=== PATIENT | female | born 1975 | race Caucasian/White ===

== ENCOUNTER 2016-11-08 03:38 | Observation (INO) | payer OTHER ==
[2016-11-08] MEDS ORDERED: LORazepam 2 MG/ML SYRINGE IV STA (03:57)
[2016-11-08] MEDS ORDERED: SODIUM CHLORIDE 0.9% 500 ML IV STA (03:57)
[2016-11-08] MEDS ORDERED: SODIUM CHLORIDE 0.9% 1,000 ML IV STA (03:57)
[2016-11-08] MEDS ORDERED: MORPHINE SULFATE 4 MG/ML SYRINGE IVP STA (03:58)
--- NOTE | 2016-11-08 04:08 | ED ---
General Adult HPI - General Chief complaint: Shortness of Breath Stated complaint: SOB Time Seen by Provider: 11/08/16 03:52 Source: patient, RN notes reviewed, old records reviewed Mode of arrival: wheelchair Limitations: no limitations - History of Present Illness Initial comments: This is a 5-year-old female the ER for evaluation. Patient having difficulty with stress and stress reaction, treatment grief reaction. Patient also has history of high blood pressure high cholesterol stroke and [place], patient coming her chest pain rating to left tolerating the left shoulder. Symptoms began 's patient states she's been on edge lately has not slept in 3 days, not eating appropriately losing weight. No fevers cough or congestion, no travel history, patient states she's been taking care of her mother lately and that she coming a difficult burden for her. - Related Data Home Medications Medication Instructions Recorded Confirmed No Known Home Medications [No 11/08/16 11/08/16 Known Home Medications] Allergies Allergy/AdvReac Type Severity Reaction Status Date / Time ciprofloxacin [From Cipro] Allergy Unknown Verified 11/08/16 03:48 ciprofloxacin HCl Allergy Unknown Verified 11/08/16 03:48 [From Cipro] ibuprofen [From Motrin] Allergy Swelling Verified 11/08/16 03:48 Iodinated Contrast Media - Allergy Swelling Verified 11/08/16 03:48 Oral and [Iodinated Contrast Media - IV Dye] Penicillins Allergy Unknown Verified 11/08/16 03:48 Review of Systems ROS Statement: Those systems with pertinent positive or pertinent negative responses have been documented in the HPI. ROS Other: All systems not noted in ROS Statement are negative. Past Medical History Past Medical History: CVA/TIA, Hypertension, Myocardial Infarction ([place]) History of Any Multi-Drug Resistant Organisms: None Reported Past Surgical History: Section, Heart Catheterization, Hysterectomy, Uterine Ablation Past Psychological History: Anxiety Smoking Status: Current every day smoker Past Alcohol Use History: None Reported Past Drug Use History: None Reported General Exam Limitations: no limitations General appearance: alert, in no apparent distress, anxious Head exam: Present: atraumatic, normocephalic, normal inspection Eye exam: Present: normal appearance, PERRL, EOMI. Absent: scleral icterus, conjunctival injection, periorbital swelling ENT exam: Present: normal exam, mucous membranes moist Neck exam: Present: normal inspection. Absent: tenderness, meningismus, lymphadenopathy Respiratory exam: Present: normal lung sounds bilaterally. Absent: respiratory distress, wheezes, rales, rhonchi, stridor Cardiovascular Exam: Present: regular rate, normal rhythm, normal heart sounds. Absent: systolic murmur, diastolic murmur, rubs, gallop, clicks GI/Abdominal exam: Present: soft, normal bowel sounds. Absent: distended, tenderness, guarding, rebound, rigid Extremities exam: Present: normal inspection, full ROM, normal capillary refill. Absent: tenderness, pedal edema, joint swelling, calf tenderness Back exam: Present: normal inspection Neurological exam: Present: alert, oriented X3, CN II-XII intact Psychiatric exam: Present: normal affect, normal mood Skin exam: Present: warm, dry, intact, normal color. Absent: rash Course Vital Signs 11/08/16 03:45 Temperature 97.8 F Pulse Rate 132 H Respiratory 20 Rate Blood Pressure 143/87 O2 Sat by Pulse 97 Oximetry - Reevaluation(s) Reevaluation #1: 11/08/16 04:30 On further evaluation patient becomes very emotional, very anxious, states she notes she has history of stroke and heart attack but this is stress-induced, she is very anxious and having difficulties taking care of her mother. Not homicidal or suicidal Reevaluation #2: 11/08/16 05:33 Patient still with chest pain left-sided shortness of breath EKG Findings - EKG Comments: EKG Findings:: EKG shows sinus tachycardia rate 101, IA 134, QRS 80, QTC 471 Medical Decision Making - Medical Decision Making 41 seen yet with female chest pain history of stroke and CVA and heart disease, history of heart attack, patient having increased stress and anxiety lately, she is very depressed. Very emotional. Patient doesn't mildly elevated precardiac enzymes, patient be admitted for cardiac observation, sterile troponins, initial EKG shows no ST elevation, patient symptoms are mildly improved anxiolysis. Patient will be admitted again for struck troponins anticoagulation and cardiac observation - Lab Data Result diagrams: 11/08/16 04:05 11/08/16 04:05 Lab Results 11/08/16 11/08/16 11/08/16 Range/Units 04:05 04:05 04:05 WBC 9.0 (3.8-10.6) k/uL RBC 4.95 (3.80-5.40) m/uL Hgb 15.9 (11.4-16.0) gm/dL Hct 46.4 H (34.0-46.0) % MCV 93.8 (80.0-100.0) fL MCH 32.1 (25.0-35.0) pg MCHC 34.2 (31.0-37.0) g/dL RDW 13.6 (11.5-15.5) % Plt Count 255 (150-450) k/uL Neutrophils % 50 % Lymphocytes % 39 % Monocytes % 6 % Eosinophils % 3 % Basophils % 0 % Neutrophils # 4.5 (1.3-7.7) k/uL Lymphocytes # 3.5 (1.0-4.8) k/uL Monocytes # 0.5 (0-1.0) k/uL Eosinophils # 0.3 (0-0.7) k/uL Basophils # 0.0 (0-0.2) k/uL PT (9.0-12.0) sec INR (<1.1) APTT (22.0-30.0) sec D-Dimer (<0.60) mg/L FEU Sodium 151 H (137-145) mmol/L Potassium 3.7 (3.5-5.1) mmol/L Chloride 111 H (98-107) mmol/L Carbon Dioxide 22 (22-30) mmol/L Anion Gap 18 mmol/L BUN 6 L (7-17) mg/dL Creatinine 0.40 L (0.52-1.04) mg/dL Est GFR (MDRD) Af Amer >60 (>60 ml/min/1.73 sqM) Est GFR (MDRD) Non-Af >60 (>60 ml/min/1.73 sqM) Glucose 110 H (74-99) mg/dL Calcium 9.5 (8.4-10.2) mg/dL Magnesium 1.9 (1.6-2.3) mg/dL Total Bilirubin 0.3 (0.2-1.3) mg/dL AST 30 (14-36) U/L ALT 34 (9-52) U/L Alkaline Phosphatase 83 (38-126) U/L Total Creatine Kinase 163 H (30-135) U/L CK-MB (CK-2) 3.8 H* (0.0-2.4) ng/mL CK-MB (CK-2) Rel Index 2.3 Troponin I <0.012 (0.000-0.034) ng/mL NT-Pro-B Natriuret Pep pg/mL Total Protein 7.6 (6.3-8.2) g/dL Albumin 4.5 (3.5-5.0) g/dL 11/08/16 11/08/16 Range/Units 04:05 04:05 WBC (3.8-10.6) k/uL RBC (3.80-5.40) m/uL Hgb (11.4-16.0) gm/dL Hct (34.0-46.0) % MCV (80.0-100.0) fL MCH (25.0-35.0) pg MCHC (31.0-37.0) g/dL RDW (11.5-15.5) % Plt Count (150-450) k/uL Neutrophils % % Lymphocytes % % Monocytes % % Eosinophils % % Basophils % % Neutrophils # (1.3-7.7) k/uL Lymphocytes # (1.0-4.8) k/uL Monocytes # (0-1.0) k/uL Eosinophils # (0-0.7) k/uL Basophils # (0-0.2) k/uL PT 10.3 (9.0-12.0) sec INR 1.0 (<1.1) APTT 25.0 (22.0-30.0) sec D-Dimer 0.31 (<0.60) mg/L FEU Sodium (137-145) mmol/L Potassium (3.5-5.1) mmol/L Chloride (98-107) mmol/L Carbon Dioxide (22-30) mmol/L Anion Gap mmol/L BUN (7-17) mg/dL Creatinine (0.52-1.04) mg/dL Est GFR (MDRD) Af Amer (>60 ml/min/1.73 sqM) Est GFR (MDRD) Non-Af (>60 ml/min/1.73 sqM) Glucose (74-99) mg/dL Calcium (8.4-10.2) mg/dL Magnesium (1.6-2.3) mg/dL Total Bilirubin (0.2-1.3) mg/dL AST (14-36) U/L ALT (9-52) U/L Alkaline Phosphatase (38-126) U/L Total Creatine Kinase (30-135) U/L CK-MB (CK-2) (0.0-2.4) ng/mL CK-MB (CK-2) Rel Index Troponin I (0.000-0.034) ng/mL NT-Pro-B Natriuret Pep 24 pg/mL Total Protein (6.3-8.2) g/dL Albumin (3.5-5.0) g/dL - Radiology Data Radiology results: report reviewed (Chest x-ray 2 view negative for acute disease), image reviewed Critical Care Time Critical Care Time: Yes Total Critical Care Time: 31 Disposition Clinical Impression: Chest pain, Anxiety, Grief reaction, Depression Disposition: ADMITTED IP TO THIS [facility] Condition: Undetermined Referrals: None,Stated [Primary Care Provider] - 1-2 days
[2016-11-08 04:22] LABS: Basophils % (A) 0 %; CH 32.6; CHCM 34.9; Eosinophils # (A) 0.3 k/uL (0-0.7); Eosinophils % (A) 3 %; HCT 46.4 % (34.0-46.0); HDW 2.66; HGB 15.9 gm/dL (11.4-16.0); Luc # (Auto) 0.26; Luc % (Auto) 3; Lymphocytes # (A) 3.5 k/uL (1.0-4.8); Lymphocytes % (A) 39 %; MCH 32.1 pg (25.0-35.0); MCHC 34.2 g/dL (31.0-37.0); MCV 93.8 fL (80.0-100.0); Mean Platelet Volume 6.9; Monocytes # (A) 0.5 k/uL (0-1.0); Monocytes % (A) 6 %; Neutrophils # (A) 4.5 k/uL (1.3-7.7); Neutrophils % (A) 50 %; RBC 4.95 m/uL (3.80-5.40); RDW 13.6 % (11.5-15.5); WBC (Perox) 8.84
[2016-11-08 04:33] LABS: ALT 34 U/L (9-52); AST 30 U/L (14-36); Alkaline Phosphatase 83 U/L (38-126); Anion Gap 18 mmol/L; Blood Urea Nitrogen 6 mg/dL (7-17); Calcium 9.5 mg/dL (8.4-10.2); Carbon Dioxide 22 mmol/L (22-30); Chloride 111 mmol/L (98-107); Glucose 110 mg/dL (74-99); Magnesium 1.9 mg/dL (1.6-2.3); Non-African American GFR(MDRD) >60 (>60 ml/min/1.73 sqM); Potassium 3.7 mmol/L (3.5-5.1); Sodium 151 mmol/L (137-145); Total Bilirubin 0.3 mg/dL (0.2-1.3); Total Protein 7.6 g/dL (6.3-8.2)
--- NOTE | 2016-11-08 04:35 | XR ---
EXAMINATION TYPE: XR chest 2V DATE OF EXAM: 11/08/2016 4:18 AM COMPARISON: 01/08/2011 HISTORY: Chest pain TECHNIQUE: Frontal and lateral views of the chest are obtained. FINDINGS: Heart and mediastinum are normal. Lungs are clear. Diaphragm is normal. Bony thorax is int act. IMPRESSION: Normal chest. No change.
[2016-11-08 04:39] LABS: Prothrombin Time 10.3 sec (9.0-12.0)
[2016-11-08 04:43] LABS: Creatine Kinase 163 U/L (30-135)
[2016-11-08 04:56] LABS: Troponin I <0.012 ng/mL (0.000-0.034)
[2016-11-08 04:59] LABS: Creatine Kinase MB 3.8 ng/mL (0.0-2.4)
[2016-11-08] MEDS ORDERED: ASPIRIN 81 MG CHEW PO STA (05:34)
[2016-11-08] MEDS ORDERED: NITROGLYCERIN SL TABS 0.4 MG TAB SUBLINGUAL PRN (05:34)
[2016-11-08] MEDS ORDERED: HEPARIN SODIUM,PORCINE 5,000 UNIT/ML 1 ML VIAL IV ONE (05:34)
[2016-11-08] MEDS ORDERED: HEPARIN SODIUM,PORCINE 5,000 UNIT/ML 1 ML VIAL IV PRN (05:34)
[2016-11-08] MEDS ORDERED: LORazepam 2 MG/ML SYRINGE IV PRN (05:34)
[2016-11-08] MEDS ORDERED: HEPARIN SODIUM,PORCINE/D5W PMX 25,000 UNIT in DEXTROSE/WATER 1 500ML.BAG IV SCH (05:45)
[2016-11-08] MEDS ORDERED: SODIUM CHLORIDE 0.9% 1,000 ML IV SCH (05:45)
[2016-11-08] MEDS ORDERED: ATORVASTATIN 80 MG TAB PO SCH (09:00)
[2016-11-08 10:00] LABS: Mean Platelet Volume 7.9
[2016-11-08] MEDS: MORPHINE SULFATE 4 MG/ML SYRINGE IV PRN ×2 (10:06→14:03)
[2016-11-08 10:28] LABS: Creatine Kinase 120 U/L (30-135)
[2016-11-08 10:42] LABS: Creatine Kinase MB 2.4 ng/mL (0.0-2.4); Troponin I <0.012 ng/mL (0.000-0.034)
--- NOTE | 2016-11-08 10:57 | CONS ---
DATE OF CONSULTATION: CHIEF COMPLAINT: Chest pain and anxiety. This is a 41-year-old lady with no significant past medical history with a prior history of stroke comes to the hospital complaining of precordial pain. It is sharp precordial without definite radiation to neck, arm or back, unassociated with diaphoresis and unrelated to exertion. 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 Past medical history is negative for hypertension, diabetes, dyslipidemia. MEDICATIONS: None. ALLERGIES: ALLERGIC TO CIPRO AND MOTRIN, IV DYE AND PENICILLIN. FAMILY HISTORY: Significant for coronary artery disease in her mother. SOCIAL HISTORY: She denies smoking, ETOH abuse, or drug abuse. REVIEW OF SYSTEMS: HEENT: Significant for ptosis of the left eye. CARDIAC: Negative. RESPIRATORY: Negative. GI: Negative. GENITOURINARY: Negative. Allergy/immunology: Negative. SKIN: Negative. MUSCULOSKELETAL: ENDOCRINE: Negative. CONSTITUTIONAL: Negative. Oncological: Negative. HEMATOLOGICAL: Negative. The rest of the system review is not relevant. On exam, comfortable at rest. Heart rate is 75 beats per minute, blood pressure is 125/80, respiratory rate 18, afebrile. There is no jugular venous distention. Carotid upstroke is normal. There is no bruit. Chest exam reveals good air entry bilaterally. Heart exam reveals first and second heart sounds. No gallop. No murmur, no rub. ABDOMEN: Soft, nontender. Exam of extremities did not reveal any edema. Peripheral pulses are felt. ELEVATOR TECHNICIAN exam did not reveal focal neurological deficits. Labs show that hemoglobin is 15.9. Creatinine is 0.4. First set of troponin is negative. ASSESSMENT: Atypical chest pain syndrome. PLAN: I will obtain another set of troponin. If this is negative, obtain a 2-D echocardiogram, stop the IV heparin and she can be discharged home and pursue work-up as outpatient.
[2016-11-08 12:35] VITALS: BP 107/57; PULSE 103; RESP 14; TEMP 98.5
[2016-11-08 13:29] LABS: Appearance,Urine Clear (Clear); Bilirubin,Urine Negative (Negative); Glucose,Urine (UA) Negative (Negative); Ketones,Urine Negative (Negative); Leukocyte Esterase,Urine Negative (Negative); Nitrite,Urine Negative (Negative); Protein,Urine Negative (Negative); Specific Gravity,Urine 1.011 (1.001-1.035); UA Billing (MACRO vs. MICRO) CHEM; Urobilinogen,Urine <2.0 mg/dL (<2.0)
--- NOTE | 2016-11-08 13:31 | ECHOF ---
Referral Reason:heart function MEASUREMENTS -------- HEIGHT: 170.2 cm WEIGHT: 66.2 kg BP: 125/80 IVSd: 1.0 cm (0.6 - 1.1) LVIDd: 3.5 cm (3.9 - 5.3) LVPWd: 1.2 cm (0.6 - 1.1) LVIDs: 2.4 cm LA Diam: 2.7 cm (2.7 - 3.8) RVIDd: 2.8 cm (< 3.3) Ao Diam: 2.9 cm (2.0 - 3.7) AV Cusp: 2.6 cm (1.5 - 2.6) EPSS: 0.3 cm MV E Jose Angel: 0.99 m/s MV DecT: 303 ms MV A Jose Angel: 0.86 m/s MV E/A Ratio: 1.15 RAP: 5.00 mmHg RVSP: 25.25 mmHg MV EF SLOPE: 105.57 mm/s (70 - 150) MV EXCURSION: 20.04 mm (> 18.000) FINDINGS -------- Sinus rhythm. This was a technically good study. The left ventricular size is normal. There is borderline concentric left ventricular hypertrophy. Overall left ventricular systolic function is normal with, an EF between 60 - 65 %. The right ventricle is normal in size and function. The left atrium is normal in size. The right atrium is normal in size. The aortic valve is trileaflet and appears structurally normal. The mitral valve is normal. Mild tricuspid regurgitation present. Right ventricular systolic pressure is normal at < 35 mmHg. The pulmonic valve is normal. The aortic root size is normal. Normal inferior vena cava with normal inspiratory collapse consistent with estimated right atrial pressure of 5 mmHg. There is no pericardial effusion. CONCLUSIONS -------- 1. Sinus rhythm. 2. The mitral valve is normal. 3. Mild tricuspid regurgitation present. 4. Right ventricular systolic pressure is normal at < 35 mmHg. 5. The pulmonic valve is normal. 6. The aortic root size is normal. 7. Normal inferior vena cava with normal inspiratory collapse consistent with estimated right atrial pressure of 5 mmHg. 8. There is no pericardial effusion. 9. This was a technically good study. 10. The left ventricular size is normal. 11. There is borderline concentric left ventricular hypertrophy. 12. Overall left ventricular systolic function is normal with, an EF between 60 - 65 %. 13. The right ventricle is normal in size and function. 14. The left atrium is normal in size. 15. The right atrium is normal in size. 16. The aortic valve is trileaflet and appears structurally normal. CLERICAL ADJUSTER: Evelyn Bourgeois RDCS
--- NOTE | 2016-11-08 15:42 | HP ---
DATE OF ADMISSION: CHIEF COMPLAINT: This is a 41-year-old white female admitted with shortness of breath. HISTORY OF PRESENT ILLNESS: This 41-year-old white female admitted to the hospital as she has a severe grief reaction going with chest pressure, high blood pressure and cholesterol, smoking in the past, she had an DC in the past. Has not slept in 3 days, not eating, losing weight. No fever, chills, but she is under severe anxiety and stress. ALLERGIES: No known drug allergies except for CIPRO, IBUPROFEN, IODINE, PENICILLIN. REVIEW OF SYSTEMS: A 14-point review of systems negative except for the ones mentioned above. PAST MEDICAL HISTORY: History of CVA, TIA, hypertension, myocardial infarction, , heart catheterization, uterine ablations. SURGICAL HISTORY: , heart catheterization, hysterectomy, uterine ablation. She has anxiety, every day smoker. No alcohol. No drug use. History of CVA, TIA, hypertension, myocardial infarction. Lungs are clear to auscultation. CARDIOVASCULAR: S1 and S2. GI: Soft. PSYCH: Fair mood and affect. ENT: External ear canals within normal limits. OPHTHALMOLOGIC: Pupils equal, round and react to light and accommodation. : No suprapubic tenderness. VASCULAR: Normal dorsalis pedis, posterior tibial. Temperature is 97.8, pulse is in 100 to 130, respiratory rate 18 to 20, blood pressure 143/87. O2 sat is 97% on room air. ASSESSMENT: 1. Atypical chest pain, suspect musculoskeletal. 2. Very emotional, very nervous, anxiety. EKG's will be done. Troponins will be done, serial troponins rule out myocardial infarction. IV heparin will be given. Cardiac observation. Sodium is 151, she has hypernatremia secondary to possible dehydration. Cardiology is consulted. Negative BNP, negative d-dimer, negative chest x-ray. Await for Cardiology to send the patient home.
--- NOTE | 2016-11-08 20:46 | DS ---
DATE OF ADMISSION: 11/08/2016 DATE OF DISCHARGE: 11/08/2016 DISCHARGE MEDICATIONS: None. CONDITION: Stable. PROGNOSIS: Guarded. Activity as tolerated. HOSPITAL COURSE OF EVENTS: This 41-year-old white female admitted with atypical chest pain mostly anxiety due to multiple family problems at home, was monitored in the hospital. She had negative cardiac enzymes x3 and echocardiogram, which was within normal limits, cleared by cardiology for discharge. She had a negative D-dimer and negative chest x-ray, ( ) from for a pulmonary embolism was negative. She will follow up as an outpatient. Also cleared by psychiatry for any kind of depression and anxiety to follow up as an outpatient.
[2016-11-09] MEDS ORDERED: ASPIRIN 325 MG TAB PO SCH (09:00)
[2016-11-09 10:57] LABS: Hemoglobin A1C 5.5 % (4.2-6.1)
== END 2016-11-08 15:18 | disposition home or self-care (01) ==
LOC: EC 03:38 → 3OBS 05:34
PROVIDERS: ADMIT Family Medicine; ATTEND Family Medicine
DX: R07.89 Other chest pain (principal); F43.22 Adjustment disorder with anxiety; Z63.9 Problem related to primary support group, unspecified; E87.0 Hyperosmolality and hypernatremia; F32.9 Major depressive disorder, single episode, unspecified; G47.00 Insomnia, unspecified; I51.9 Heart disease, unspecified; F17.200 Nicotine dependence, unspecified, uncomplicated; Z86.73 Personal history of transient ischemic attack (TIA), and cerebral infarction without residual deficits; I25.2 Old myocardial infarction; Z88.0 Allergy status to penicillin; Z88.1 Allergy status to other antibiotic agents; Z91.041 Radiographic dye allergy status; Z88.8 Allergy status to other drugs, medicaments and biological substances; Z82.49 Family history of ischemic heart disease and other diseases of the circulatory system; E78.00 Pure hypercholesterolemia, unspecified
CPT/HCPCS: 96361; 96375 ×2; 96376; 99291; 36415; 93005; 93306; 85379; 83880; 80053; 83036; 82550; 82553; 83735; 84484; 85025; 85049; 85610; 85730; 81003; 80306; 71020; G0378; J2060; J2270; J1644 ×2; 96366

== ENCOUNTER 2016-12-10 22:27 | Emergency (ER) | payer OTHER ==
[2016-12-10] MEDS ORDERED: ONDANSETRON 4 MG/2 ML VIAL IVP STA (22:59)
[2016-12-10] MEDS ORDERED: SODIUM CHLORIDE 0.9% 1,000 ML IV STA (22:59)
[2016-12-10] MEDS ORDERED: HYDROmorphone 1 MG/ML 1 ML SYRINGE IVP STA (22:59)
[2016-12-10] MEDS ORDERED: PANTOPRAZOLE 40 MG/10 ML VIAL IVP STA (22:59)
[2016-12-10] MEDS ORDERED: MAG HYDROX/AL HYDROX/SIMETH 30 ML, HYOSCYAMINE ELIXIR 10 ML, CIMETIDINE HCL 300 MG, LID... PO STA ×4 (23:05)
[2016-12-10 23:59] LABS: Basophils # (A) 0.1 k/uL (0-0.2); Basophils % (A) 1 %; CH 32.4; CHCM 33.9; Eosinophils # (A) 0.2 k/uL (0-0.7); Eosinophils % (A) 3 %; HCT 49.6 % (34.0-46.0); HDW 2.68; HGB 16.5 gm/dL (11.4-16.0); Luc # (Auto) 0.18; Luc % (Auto) 2; Lymphocytes # (A) 2.7 k/uL (1.0-4.8); Lymphocytes % (A) 27 %; MCHC 33.3 g/dL (31.0-37.0); Monocytes # (A) 0.3 k/uL (0-1.0); Monocytes % (A) 4 %; Neutrophils # (A) 6.2 k/uL (1.3-7.7); Neutrophils % (A) 64 %; RBC 5.16 m/uL (3.80-5.40); RDW 13.8 % (11.5-15.5); WBC 9.7 k/uL (3.8-10.6); WBC (Perox) 9.71
[2016-12-11 00:07] LABS: ALT 33 U/L (9-52); AST 26 U/L (14-36); Alkaline Phosphatase 66 U/L (38-126); Amylase 42 U/L (30-110); Anion Gap 13 mmol/L; Blood Urea Nitrogen 9 mg/dL (7-17); Calcium 10.3 mg/dL (8.4-10.2); Carbon Dioxide 26 mmol/L (22-30); Chloride 105 mmol/L (98-107); Glucose 92 mg/dL (74-99); Non-African American GFR(MDRD) >60 (>60 ml/min/1.73 sqM); Potassium 3.6 mmol/L (3.5-5.1); Sodium 144 mmol/L (137-145); Total Bilirubin 0.4 mg/dL (0.2-1.3); Total Protein 8.1 g/dL (6.3-8.2)
--- NOTE | 2016-12-11 00:15 | XR ---
EXAM: XR Abdomen, 1 View. CLINICAL HISTORY: Reason: abdominal pain TECHNIQUE: Frontal supine view of the abdomen/pelvis. COMPARISON: No relevant prior studies available. FINDINGS: Gastrointestinal tract: Unremarkable. No dilation. Bones/joints: No acute fracture. IMPRESSION: Nonobstructive bowel gas pattern.
[2016-12-11 00:21] VITALS: TEMP 98.6
[2016-12-11 01:11] LABS: Appearance,Urine Turbid (Clear); Bacteria,Urine Many /hpf; Bilirubin,Urine Negative (Negative); Glucose,Urine (UA) Negative (Negative); Ketones,Urine Negative (Negative); Leukocyte Esterase,Urine Large (Negative); Mucus,Urine Many /hpf; Nitrite,Urine Negative (Negative); PH, Urine 5.5 (5.0-8.0); Particle Count 56242; Protein,Urine 1+ (Negative); RBC,Urine 17 /hpf (0-5); Specific Gravity,Urine 1.022 (1.001-1.035); Squamous Epithelial Cell,Urine 36 /hpf (0-4); UA Billing (MACRO vs. MICRO) MICRO; Urobilinogen,Urine <2.0 mg/dL (<2.0); WBC,Urine 4 /hpf (0-5)
[2016-12-11] MEDS ORDERED: HYDROmorphone 1 MG/ML 1 ML SYRINGE IVP STA (01:20)
--- NOTE | 2016-12-11 01:20 | ED ---
Abdominal Pain HPI - General Chief Complaint: Abdominal Pain Stated Complaint: abdominal pain/swelling Time Seen by Provider: 12/10/16 22:49 Source: patient, RN notes reviewed, old records reviewed Mode of arrival: ambulatory Limitations: no limitations - History of Present Illness Initial Comments: Patient is a 41-year-old [employer] chief complaint of epigastric abdominal pain for approximately 2 days. Patient reports that occurred after she was drinking. Patient states that she does drink occasionally approximately 2-3 times a week. She states that she has a burning sensation in the epigastric region mainly is located there. She denies any diarrhea or changes in stools. She denies any vomiting. She reports that she is nauseated. Patient reports that she feels that she is distended. She denies any fever or chills. Patient denies any recent fever, chills, shortness of breath, chest pain, back pain, vomiting, numbness or tingling, dysuria or hematuria, constipation or diarrhea, headaches or visual changes, or any other current symptoms. She has a history of tubal ligation. - Related Data Previous Rx's Medication Instructions Recorded Acetaminophen-Codeine 300-30mg 1 tab PO Q4H PRN #15 tablet 12/11/16 [Tylenol #3] Omeprazole 40 mg PO DAILY #30 capsule. 12/11/16 Ondansetron Odt [Zofran Odt] 4 mg PO Q8HR PRN #12 tab 12/11/16 Allergies Allergy/AdvReac Type Severity Reaction Status Date / Time ciprofloxacin [From Cipro] Allergy Rash/Hives Verified 12/10/16 22:52 ciprofloxacin HCl Allergy Rash/Hives Verified 12/10/16 22:52 [From Cipro] ibuprofen [From Motrin] Allergy Anaphylaxis Verified 12/10/16 22:52 Iodinated Contrast Media - Allergy Swelling Verified 12/10/16 22:52 Oral and [Iodinated Contrast Media - IV Dye] Penicillins Allergy Unknown Verified 12/10/16 22:52 Childhood Review of Systems ROS Statement: Those systems with pertinent positive or pertinent negative responses have been documented in the HPI. ROS Other: All systems not noted in ROS Statement are negative. Past Medical History Past Medical History: CVA/TIA, Hypertension, Myocardial Infarction ([place]) Last Myocardial Infarction Date:: 2007 History of Any Multi-Drug Resistant Organisms: None Reported Past Surgical History: Section, Heart Catheterization, Hysterectomy, Uterine Ablation Past Anesthesia/Blood Transfusion Reactions: No Reported Reaction Past Psychological History: Anxiety Smoking Status: Current every day smoker Past Alcohol Use History: None Reported Past Drug Use History: None Reported General Exam - General Exam Comments Initial Comments: Patient is a well-appearing 41-year-old female. She does not appear to be in any acute distress. Limitations: no limitations General appearance: alert, in no apparent distress Head exam: Present: atraumatic, normocephalic, normal inspection Eye exam: Present: normal appearance, PERRL, EOMI. Absent: scleral icterus, conjunctival injection, periorbital swelling ENT exam: Present: normal exam, mucous membranes moist Neck exam: Present: normal inspection. Absent: tenderness, meningismus, lymphadenopathy Respiratory exam: Present: normal lung sounds bilaterally. Absent: respiratory distress, wheezes, rales, rhonchi, stridor Cardiovascular Exam: Present: regular rate, normal rhythm, normal heart sounds. Absent: systolic murmur, diastolic murmur, rubs, gallop, clicks GI/Abdominal exam: Present: soft, tenderness (Epigastric abdominal tenderness.) , normal bowel sounds. Absent: distended, guarding, rebound, rigid Extremities exam: Present: normal inspection, full ROM, normal capillary refill. Absent: tenderness, pedal edema, joint swelling, calf tenderness Back exam: Present: normal inspection Neurological exam: Present: alert, oriented X3, CN II-XII intact Psychiatric exam: Present: normal affect, normal mood Skin exam: Present: warm, dry, intact, normal color. Absent: rash Course Vital Signs 12/10/16 12/11/16 22:46 00:20 Temperature 98.9 F 98.6 F Pulse Rate 104 H 77 Respiratory 18 18 Rate Blood Pressure 150/88 147/81 O2 Sat by Pulse 99 97 Oximetry Medical Decision Making - Medical Decision Making Patient is a 41-year-old female present complaining of 2 days of epigastric abdominal pain. Patient denies any history of ulcers or NSAID use. She states that the pain occurred after she was drinking. Patient states she's had nausea but no episodes of vomiting. IV line labs were obtained. Patient was given GI cocktail and Protonix. Patient also given 0.5 Dilaudid. Patient presented his pain is much better at this time. Discussed the patient likely has a gastritis related to alcohol use. Patient be started on omeprazole patient is given an initial Protonix IV push here. Patient will also be discharged with Zofran for nausea and some pain medicine. I discussed that she needs follow-up with GI specialist and week for referral. Patient discussed treatment plan will comply. Return Parameters were discussed. - Lab Data Result diagrams: 12/10/16 23:40 12/10/16 23:40 Lab Results 12/10/16 12/10/16 12/11/16 Range/Units 23:40 23:40 00:17 WBC 9.7 (3.8-10.6) k/uL RBC 5.16 (3.80-5.40) m/uL Hgb 16.5 H (11.4-16.0) gm/dL Hct 49.6 H (34.0-46.0) % MCV 96.0 (80.0-100.0) fL MCH 32.0 (25.0-35.0) pg MCHC 33.3 (31.0-37.0) g/dL RDW 13.8 (11.5-15.5) % Plt Count 225 (150-450) k/uL Neutrophils % 64 % Lymphocytes % 27 % Monocytes % 4 % Eosinophils % 3 % Basophils % 1 % Neutrophils # 6.2 (1.3-7.7) k/uL Lymphocytes # 2.7 (1.0-4.8) k/uL Monocytes # 0.3 (0-1.0) k/uL Eosinophils # 0.2 (0-0.7) k/uL Basophils # 0.1 (0-0.2) k/uL Sodium 144 (137-145) mmol/L Potassium 3.6 (3.5-5.1) mmol/L Chloride 105 (98-107) mmol/L Carbon Dioxide 26 (22-30) mmol/L Anion Gap 13 mmol/L BUN 9 (7-17) mg/dL Creatinine 0.40 L (0.52-1.04) mg/dL Est GFR (MDRD) Af Amer >60 (>60 ml/min/1.73 sqM) Est GFR (MDRD) Non-Af >60 (>60 ml/min/1.73 sqM) Glucose 92 (74-99) mg/dL Calcium 10.3 H (8.4-10.2) mg/dL Total Bilirubin 0.4 (0.2-1.3) mg/dL AST 26 (14-36) U/L ALT 33 (9-52) U/L Alkaline Phosphatase 66 (38-126) U/L Total Protein 8.1 (6.3-8.2) g/dL Albumin 4.7 (3.5-5.0) g/dL Amylase 42 (30-110) U/L Lipase 85 (23-300) U/L Urine Color Yellow Urine Appearance Turbid H (Clear) Urine pH 5.5 (5.0-8.0) Ur Specific Palmer 1.022 (1.001-1.035) Urine Protein 1+ H (Negative) Urine Glucose (UA) Negative (Negative) Urine Ketones Negative (Negative) Urine Blood Small H (Negative) Urine Nitrite Negative (Negative) Urine Bilirubin Negative (Negative) Urine Urobilinogen <2.0 (<2.0) mg/dL Ur Leukocyte Esterase Large H (Negative) Urine RBC 17 H (0-5) /hpf Urine WBC 4 (0-5) /hpf Ur Squamous Epith Cells 36 H (0-4) /hpf Urine Bacteria Many H (None) /hpf Urine Mucus Many H (None) /hpf Disposition Clinical Impression: Gastritis Disposition: HOME SELF-CARE Condition: Good Instructions: Gastritis (ED), Diet for Stomach Ulcers and Gastritis (ED) Additional Instructions: Patient advised to take the medications as prescribed. Follow-up with GI specialist. Return to emergency department if any worsening signs or symptoms occur. Prescriptions: Acetaminophen-Codeine 300-30mg [Tylenol #3] 1 tab PO Q4H PRN #15 tablet PRN Reason: Pain Omeprazole 40 mg PO DAILY #30 capsule. Ondansetron Odt [Zofran Odt] 4 mg PO Q8HR PRN #12 tab PRN Reason: Nausea Referrals: Mariaelena Juan MD [STAFF PHYSICIAN] - 1-2 days Dionne Walker MD [STAFF PHYSICIAN] - 1-2 days Time of Disposition: 01:15
[2016-12-11 01:57] VITALS: BP 123/77; PULSE 79; RESP 16
== END 2016-12-11 01:54 | disposition home or self-care (01) ==
LOC: EC 22:27
DX: K29.70 Gastritis, unspecified, without bleeding (principal); F17.200 Nicotine dependence, unspecified, uncomplicated; Z88.0 Allergy status to penicillin; Z88.1 Allergy status to other antibiotic agents; Z88.6 Allergy status to analgesic agent; Z91.041 Radiographic dye allergy status
CPT/HCPCS: 36415; 80053; 82150; 83690; 85025; 81001; 74000; 99284; 96374; 96375 ×2; 96361; 96376; J2405; J1170 ×2; C9113

== ENCOUNTER 2017-02-16 14:15 | Emergency (ER) | payer OTHER ==
[2017-02-16 14:34] VITALS: BP 167/86; PULSE 91; RESP 16; TEMP 98.2
[2017-02-16] MEDS ORDERED: ACETAMINOPHEN TAB 325 MG TAB PO STA (14:51)
--- NOTE | 2017-02-16 14:53 | ED ---
ENT HPI - General Chief complaint: ENT Stated complaint: ENT Time Seen by Provider: 02/16/17 14:29 Source: patient, RN notes reviewed Mode of arrival: ambulatory Limitations: no limitations - History of Present Illness Initial comments: Patient is a 41-year-old female presents to the emergency room for multiple complaints. Patient states that yesterday she began having fevers and sore throat. Patient states she is unable to swallow secondary to throat pain. Patient states also having pain in her lymph nodes. Patient also states she began developing hip pain but thinks that is related to her fever. Patient states she woke up this morning stating bilateral ear pain, throat pain, lymph node pain and hip pain. Patient also states that she's had a cough for the past 2 days. Patient states is productive. Patient does admit to smoking a pack per day. Patient states been taking Tylenol with relief of fever. Patient states she still having pain despite taking Tylenol. Patient states she is up-to-date on her immunizations. Patient denies sick contacts. Patient' s sensory vomiting. Patient denies chest pain or shortness of breath. - Related Data Previous Rx's Medication Instructions Recorded Acetaminophen-Codeine 300-30mg 1 tab PO Q4H PRN #15 tablet 12/11/16 [Tylenol #3] Omeprazole 40 mg PO DAILY #30 capsule. 12/11/16 Ondansetron Odt [Zofran Odt] 4 mg PO Q8HR PRN #12 tab 12/11/16 Allergies Allergy/AdvReac Type Severity Reaction Status Date / Time ciprofloxacin [From Cipro] Allergy Rash/Hives Verified 02/16/17 14:34 ciprofloxacin HCl Allergy Rash/Hives Verified 02/16/17 14:34 [From Cipro] ibuprofen [From Motrin] Allergy Anaphylaxis Verified 02/16/17 14:34 Iodinated Contrast Media - Allergy Swelling Verified 02/16/17 14:34 Oral and [Iodinated Contrast Media - IV Dye] Penicillins Allergy Unknown Verified 02/16/17 14:34 Childhood Review of Systems ROS Statement: Those systems with pertinent positive or pertinent negative responses have been documented in the HPI. ROS Other: All systems not noted in ROS Statement are negative. Past Medical History Past Medical History: CVA/TIA, Hypertension, Myocardial Infarction ([place]) Last Myocardial Infarction Date:: 2007 History of Any Multi-Drug Resistant Organisms: None Reported Past Surgical History: Section, Heart Catheterization, Hysterectomy, Tubal Ligation, Uterine Ablation Past Anesthesia/Blood Transfusion Reactions: No Reported Reaction Past Psychological History: Anxiety Smoking Status: Current every day smoker Past Alcohol Use History: None Reported Past Drug Use History: None Reported General Exam - General Exam Comments Initial Comments: Sitting in exam room, no acute distress. Limitations: no limitations General appearance: alert, in no apparent distress Head exam: Present: atraumatic, normocephalic, normal inspection Eye exam: Present: normal appearance, PERRL, EOMI Pupils: Present: normal accommodation ENT exam: Present: mucous membranes moist, TM's normal bilaterally, normal external ear exam Expanded Mouth exam: Present: normal external inspection Teeth exam: Present: normal inspection Throat exam: normal inspection Neck exam: Present: normal inspection, full ROM, lymphadenopathy (Blateral anterior cervical lymph node tenderness) Respiratory exam: Present: normal lung sounds bilaterally. Absent: respiratory distress Cardiovascular Exam: Present: regular rate, normal rhythm, normal heart sounds Extremities exam: Present: normal inspection Back exam: Present: normal inspection Neurological exam: Present: alert, oriented X3, CN II-XII intact, normal gait Psychiatric exam: Present: normal affect, normal mood Skin exam: Present: warm, dry, intact, normal color. Absent: rash Course Vital Signs 02/16/17 14:32 Temperature 98.2 F Pulse Rate 91 Respiratory 16 Rate Blood Pressure 167/86 O2 Sat by Pulse 100 Oximetry Medical Decision Making - Medical Decision Making Patient is a 41-year-old female presents to the emergency room for evaluation of sore throat, fevers, cough. Patient evaluated. CBC and heterophile ordered. Chest x-ray ordered. Rapid strep pending. Patient left before results. Disposition Clinical Impression: Sore throat Disposition: Left Against Medical Advice Referrals: None,Stated [Primary Care Provider] - 1-2 days
[2017-02-16 15:13] LABS: Basophils % (A) 0 %; CHCM 34.3; Eosinophils % (A) 0 %; HCT 43.1 % (34.0-46.0); HDW 2.46; HGB 14.4 gm/dL (11.4-16.0); Luc # (Auto) 0.14; Luc % (Auto) 2; Lymphocytes # (A) 1.4 k/uL (1.0-4.8); Lymphocytes % (A) 16 %; MCH 31.4 pg (25.0-35.0); MCHC 33.4 g/dL (31.0-37.0); MCV 93.9 fL (80.0-100.0); Monocytes # (A) 0.6 k/uL (0-1.0); Monocytes % (A) 7 %; Neutrophils # (A) 6.6 k/uL (1.3-7.7); Neutrophils % (A) 75 %; RBC 4.59 m/uL (3.80-5.40); RDW 14.3 % (11.5-15.5); WBC 8.8 k/uL (3.8-10.6); WBC (Perox) 8.57
== END 2017-02-16 15:07 | disposition left against medical advice (07) ==
LOC: EC 14:15
DX: J02.9 Acute pharyngitis, unspecified (principal); F17.200 Nicotine dependence, unspecified, uncomplicated; Z88.1 Allergy status to other antibiotic agents; Z91.041 Radiographic dye allergy status; Z88.0 Allergy status to penicillin; Z88.6 Allergy status to analgesic agent; Z53.29 Procedure and treatment not carried out because of patient's decision for other reasons
CPT/HCPCS: 36415; 85025; 86308; 87081; 87430; 99283

== ENCOUNTER 2017-11-22 00:08 | Emergency (ER) | payer OTHER ==
[2017-11-22] MEDS ORDERED: MORPHINE SULFATE 4 MG/ML SYRINGE IV STA (00:40)
[2017-11-22] MEDS ORDERED: SODIUM CHLORIDE 0.9% 1,000 ML IV STA (00:40)
[2017-11-22 01:20] LABS: Basophils % (A) 0 %; Eosinophils # (A) 0.4 k/uL (0-0.7); Eosinophils % (A) 4 %; HCT 44.6 % (34.0-46.0); HGB 14.3 gm/dL (11.4-16.0); Lymphocytes # (A) 3.2 k/uL (1.0-4.8); Lymphocytes % (A) 28 %; MCH 30.2 pg (25.0-35.0); MCHC 32.1 g/dL (31.0-37.0); Mean Platelet Volume 7.1; Monocytes # (A) 0.4 k/uL (0-1.0); Monocytes % (A) 3 %; Neutrophils # (A) 7.4 k/uL (1.3-7.7); Neutrophils % (A) 64 %; Platelet Count 306 k/uL (150-450); RBC 4.74 m/uL (3.80-5.40); RDW 12.8 % (11.5-15.5); WBC 11.5 k/uL (3.8-10.6)
[2017-11-22 01:21] LABS: Appearance,Urine Clear (Clear); Bilirubin,Urine Negative (Negative); Blood,Urine Negative (Negative); Color,Urine Yellow; Glucose,Urine (UA) Negative (Negative); Ketones,Urine Trace (Negative); Leukocyte Esterase,Urine Negative (Negative); Nitrite,Urine Negative (Negative); PH, Urine 5.5 (5.0-8.0); Protein,Urine Trace (Negative); Specific Gravity,Urine 1.024 (1.001-1.035)
--- NOTE | 2017-11-22 01:21 | ED ---
General Adult HPI - General Chief complaint: Abdominal Pain Stated complaint: Abdominal Pain Time Seen by Provider: 11/22/17 00:24 Source: patient, RN notes reviewed, old records reviewed Mode of arrival: ambulatory Limitations: no limitations - History of Present Illness Initial comments: 42-year-old female presenting with left lower quadrant abdominal pain. Patient' s pain has been present for the past 10 days. She states is crampy, sharp in nature. According to the patient she is having normal bowel movements. She has had some nausea and vomiting which began approximately 2 days ago, she's had several episodes of nonbloody nonbilious vomiting. No fever, however the patient has had chills. Patient is not menstruating, no vaginal bleeding or discharge. No dysuria. No upper abdominal pain. No chest pain or shortness of breath. - Related Data Home Medications Medication Instructions Recorded Confirmed Aspirin/Acetaminophen/Caffeine 2 tab PO DAILY PRN 09/05/17 09/05/17 [Excedrin Extra Strength Caplet] Previous Rx's Medication Instructions Recorded HYDROcodone/APAP 5-325MG [[place] 1 tab PO Q6HR PRN #12 tab 11/22/17 5-325] Allergies Allergy/AdvReac Type Severity Reaction Status Date / Time ciprofloxacin [From Cipro] Allergy Rash/Hives Verified 09/05/17 10:35 ciprofloxacin HCl Allergy Rash/Hives Verified 09/05/17 10:35 [From Cipro] ibuprofen [From Motrin] Allergy Anaphylaxis Verified 09/05/17 10:35 Iodinated Contrast- Oral and Allergy Swelling Verified 09/05/17 10:35 IV Dye [Iodinated Contrast Media - IV Dye] Penicillins Allergy Unknown Verified 09/05/17 10:35 Childhood Review of Systems ROS Statement: Those systems with pertinent positive or pertinent negative responses have been documented in the HPI. ROS Other: All systems not noted in ROS Statement are negative. Past Medical History Past Medical History: CVA/TIA, Hypertension, Myocardial Infarction ([place]) Last Myocardial Infarction Date:: 2007 History of Any Multi-Drug Resistant Organisms: None Reported Past Surgical History: Section, Heart Catheterization, Hysterectomy, Uterine Ablation Past Anesthesia/Blood Transfusion Reactions: No Reported Reaction Past Psychological History: Anxiety Smoking Status: Current every day smoker Past Alcohol Use History: None Reported Past Drug Use History: Marijuana General Exam Limitations: no limitations General appearance: alert, in no apparent distress Head exam: Present: atraumatic, normocephalic Eye exam: Present: normal appearance, PERRL ENT exam: Present: normal exam, mucous membranes moist Neck exam: Present: normal inspection. Absent: tenderness, meningismus Respiratory exam: Present: normal lung sounds bilaterally. Absent: respiratory distress, wheezes, rales Cardiovascular Exam: Present: regular rate, normal rhythm GI/Abdominal exam: Present: soft, tenderness (Left lower quadrant tenderness). Absent: distended, guarding, rebound Extremities exam: Present: normal inspection, normal capillary refill. Absent: pedal edema Neurological exam: Present: alert, oriented X3, CN II-XII intact. Absent: motor sensory deficit Psychiatric exam: Present: normal affect, normal mood Skin exam: Present: warm, dry, intact. Absent: cyanosis, diaphoretic Course Vital Signs 11/22/17 00:18 Temperature 97.7 F Pulse Rate 100 Respiratory 16 Rate Blood Pressure 114/71 O2 Sat by Pulse 100 Oximetry Medical Decision Making - Medical Decision Making 42-year-old female presenting with abdominal pain. Pain is left lower quadrant , she does have history of diverticulitis, she is reporting chills. CT is obtained, this is negative for diverticulitis or any acute finding to explain the patient's pain. Hemoglobin stable 14.3. White blood cell count mildly elevated 11.5, there is hypokalemia 3.3 doses replaced in the emergency department. Urinalysis is negative for signs of infection, there is some mild he tones secondary to dehydration. Patient does receive IV fluid in the emergency department. On reevaluation she is feeling somewhat better. She will be given a primary care physician and encouraged follow-up as an outpatient. - Lab Data Result diagrams: 11/22/17 01:00 11/22/17 01:00 Lab Results 11/22/17 11/22/17 11/22/17 Range/Units 01:00 01:00 01:00 WBC 11.5 H (3.8-10.6) k/uL RBC 4.74 (3.80-5.40) m/uL Hgb 14.3 (11.4-16.0) gm/dL Hct 44.6 (34.0-46.0) % MCV 94.0 (80.0-100.0) fL MCH 30.2 (25.0-35.0) pg MCHC 32.1 (31.0-37.0) g/dL RDW 12.8 (11.5-15.5) % Plt Count 306 (150-450) k/uL Neutrophils % 64 % Lymphocytes % 28 % Monocytes % 3 % Eosinophils % 4 % Basophils % 0 % Neutrophils # 7.4 (1.3-7.7) k/uL Lymphocytes # 3.2 (1.0-4.8) k/uL Monocytes # 0.4 (0-1.0) k/uL Eosinophils # 0.4 (0-0.7) k/uL Basophils # 0.0 (0-0.2) k/uL PT (9.0-12.0) sec INR (<1.2) APTT (22.0-30.0) sec Sodium 143 (137-145) mmol/L Potassium 3.3 L (3.5-5.1) mmol/L Chloride 105 (98-107) mmol/L Carbon Dioxide 23 (22-30) mmol/L Anion Gap 15 mmol/L BUN 11 (7-17) mg/dL Creatinine 0.40 L (0.52-1.04) mg/dL Est GFR (MDRD) Af Amer >60 (>60 ml/min/1.73 sqM) Est GFR (MDRD) Non-Af >60 (>60 ml/min/1.73 sqM) Glucose 101 H (74-99) mg/dL Plasma Lactic Acid Rey 1.0 (0.7-2.0) mmol/L Calcium 10.3 H (8.4-10.2) mg/dL Total Bilirubin 0.4 (0.2-1.3) mg/dL AST 17 (14-36) U/L ALT 15 (9-52) U/L Alkaline Phosphatase 61 (38-126) U/L Total Protein 7.7 (6.3-8.2) g/dL Albumin 4.5 (3.5-5.0) g/dL Amylase 37 (30-110) U/L Lipase 48 (23-300) U/L HCG, Quant <2.4 mIU/mL Urine Color Urine Appearance (Clear) Urine pH (5.0-8.0) Ur Specific [place] (1.001-1.035) Urine Protein (Negative) Urine Glucose (UA) (Negative) Urine Ketones (Negative) Urine Blood (Negative) Urine Nitrite (Negative) Urine Bilirubin (Negative) Urine Urobilinogen (<2.0) mg/dL Ur Leukocyte Esterase (Negative) 11/22/17 11/22/17 Range/Units 01:00 01:00 WBC (3.8-10.6) k/uL RBC (3.80-5.40) m/uL Hgb (11.4-16.0) gm/dL Hct (34.0-46.0) % MCV (80.0-100.0) fL MCH (25.0-35.0) pg MCHC (31.0-37.0) g/dL RDW (11.5-15.5) % Plt Count (150-450) k/uL Neutrophils % % Lymphocytes % % Monocytes % % Eosinophils % % Basophils % % Neutrophils # (1.3-7.7) k/uL Lymphocytes # (1.0-4.8) k/uL Monocytes # (0-1.0) k/uL Eosinophils # (0-0.7) k/uL Basophils # (0-0.2) k/uL PT 10.4 (9.0-12.0) sec INR 1.1 (<1.2) APTT 24.3 (22.0-30.0) sec Sodium (137-145) mmol/L Potassium (3.5-5.1) mmol/L Chloride (98-107) mmol/L Carbon Dioxide (22-30) mmol/L Anion Gap mmol/L BUN (7-17) mg/dL Creatinine (0.52-1.04) mg/dL Est GFR (MDRD) Af Amer (>60 ml/min/1.73 sqM) Est GFR (MDRD) Non-Af (>60 ml/min/1.73 sqM) Glucose (74-99) mg/dL Plasma Lactic Acid Rey (0.7-2.0) mmol/L Calcium (8.4-10.2) mg/dL Total Bilirubin (0.2-1.3) mg/dL AST (14-36) U/L ALT (9-52) U/L Alkaline Phosphatase (38-126) U/L Total Protein (6.3-8.2) g/dL Albumin (3.5-5.0) g/dL Amylase (30-110) U/L Lipase (23-300) U/L HCG, Quant mIU/mL Urine Color Yellow Urine Appearance Clear (Clear) Urine pH 5.5 (5.0-8.0) Ur Specific [place] 1.024 (1.001-1.035) Urine Protein Trace H (Negative) Urine Glucose (UA) Negative (Negative) Urine Ketones Trace H (Negative) Urine Blood Negative (Negative) Urine Nitrite Negative (Negative) Urine Bilirubin Negative (Negative) Urine Urobilinogen 2.0 (<2.0) mg/dL Ur Leukocyte Esterase Negative (Negative) Disposition Clinical Impression: Abdominal pain Disposition: HOME SELF-CARE Condition: Good Instructions: Abdominal Pain (ED) Prescriptions: HYDROcodone/APAP 5-325MG [[place] 5-325] 1 tab PO Q6HR PRN #12 tab PRN Reason: Pain Referrals: None,Stated [Primary Care Provider] - 1-2 days Shweta Herndon MD [REFERRING] - 1-2 days Time of Disposition: 02:16
[2017-11-22 01:29] LABS: ALT 15 U/L (9-52); AST 17 U/L (14-36); Albumin 4.5 g/dL (3.5-5.0); Alkaline Phosphatase 61 U/L (38-126); Amylase 37 U/L (30-110); Anion Gap 15 mmol/L; Blood Urea Nitrogen 11 mg/dL (7-17); Calcium 10.3 mg/dL (8.4-10.2); Carbon Dioxide 23 mmol/L (22-30); Chloride 105 mmol/L (98-107); Glucose 101 mg/dL (74-99); INR 1.1 (<1.2); Lipase 48 U/L (23-300); Partial Thromboplastin Time 24.3 sec (22.0-30.0); Potassium 3.3 mmol/L (3.5-5.1); Prothrombin Time 10.4 sec (9.0-12.0); Sodium 143 mmol/L (137-145); Total Bilirubin 0.4 mg/dL (0.2-1.3); Total Protein 7.7 g/dL (6.3-8.2)
[2017-11-22 01:45] LABS: HCG,Quantitative Serum <2.4 mIU/mL
--- NOTE | 2017-11-22 01:55 | CT ---
EXAMINATION TYPE: CT abdomen pelvis wo con DATE OF EXAM: 11/22/2017 COMPARISON: NONE HISTORY: LLQ pain CT DLP: 249.80 mGycm Automated exposure control for dose reduction was used. TECHNIQUE: Helical acquisition of images was performed from the lung bases through the pelvis. FINDINGS: Lung bases are clear of consolidation. There is no pleural effusion. Heart size is normal. There is n o pericardial effusion. Liver spleen pancreas gallbladder appear normal. Bile ducts are not dilated. There is no adrenal mass. Kidneys have normal size and contour. There is no hydronephrosis. Ureters a re not dilated. There is no retroperitoneal adenopathy. There is no ascites. There is no sign of free air. I see no intestinal wall thickening. There are no dilated loops. There is no evidence of a pelvic mas s. Bony structures are intact. Uterus is retroverted. A short segment of the appendix is seen and claire ears normal. There is no sign of appendicitis. IMPRESSION: NEGATIVE CT SCAN OF THE ABDOMEN AND PELVIS. I DO NOT SEE A CAUSE FOR LEFT LOWER QUADRANT PAIN.
[2017-11-22] MEDS ORDERED: POTASSIUM CHLORIDE ER 20 MEQ TAB.ER PO STA (02:11)
[2017-11-22 02:41] VITALS: BP 105/71; PULSE 165; RESP 18; TEMP 97.8
== END 2017-11-22 02:40 | disposition home or self-care (01) ==
LOC: EC 00:08
DX: R10.32 Left lower quadrant pain (principal); R11.2 Nausea with vomiting, unspecified; F17.200 Nicotine dependence, unspecified, uncomplicated; Z87.19 Personal history of other diseases of the digestive system; Z86.73 Personal history of transient ischemic attack (TIA), and cerebral infarction without residual deficits; Z90.710 Acquired absence of both cervix and uterus; Z88.0 Allergy status to penicillin; Z88.1 Allergy status to other antibiotic agents; Z88.6 Allergy status to analgesic agent; Z91.041 Radiographic dye allergy status
CPT/HCPCS: 36415; 80053; 82150; 83605; 83690; 85025; 85610; 85730; 81003; 84702; 74176; 99285; 96374; 96361; J2270

== ENCOUNTER 2018-03-16 01:28 | Emergency (ER) | payer SELFPAY ==
[2018-03-16] MEDS ORDERED: SODIUM CHLORIDE 0.9% 1,000 ML IV STA (02:12)
[2018-03-16] MEDS ORDERED: MORPHINE SULFATE 2 MG/ML SYRINGE IVP STA (02:12)
--- NOTE | 2018-03-16 02:16 | ED ---
Abdominal Pain HPI - General Chief Complaint: Abdominal Pain Stated Complaint: Abdominal Pain Time Seen by Provider: 03/16/18 01:49 Source: patient Mode of arrival: ambulatory Limitations: no limitations - History of Present Illness Initial Comments: 42-year-old female patient presents to the emergency department today for evaluation of left lower quadrant abdominal pain and vaginal bleeding. Patient does have a history of gastroparesis caused by diabetes. She also has history of uterine ablation and has had no periods or vaginal bleeding for the last 10 years. Patient states that she has had light spotting today, states that the blood was red and on the toilet paper when she wiped. She denies any nausea, vomiting, constipation, or diarrhea. Denies any hematochezia or melena. Denies any fevers or chills with this. States that she was having some low back pain earlier today. Patient states that this pain is different from her usual pain caused by her gastroparesis. States that she hasn't seen an QUARRY BOSS years. Denies any hematuria, dysuria, urinary frequency, urinary urgency. Patient denies any recent rash, shortness breath, chest pain, back pain, numbness, tingling, dizziness, weakness, headache, visual changes, or any other complaints. - Related Data Home Medications Medication Instructions Recorded Confirmed Aspirin/Acetaminophen/Caffeine 2 tab PO DAILY PRN 09/05/17 09/05/17 [Excedrin Extra Strength Caplet] Previous Rx's Medication Instructions Recorded HYDROcodone/APAP 5-325MG [[place] 1 tab PO Q6HR PRN #12 tab 11/22/17 5-325] Dicyclomine [Bentyl] 20 mg PO QID #10 tablet 03/16/18 Metoclopramide [Reglan] 10 mg PO Q8H PRN #10 tab 03/16/18 Allergies Allergy/AdvReac Type Severity Reaction Status Date / Time ciprofloxacin [From Cipro] Allergy Rash/Hives Verified 03/16/18 01:37 ciprofloxacin HCl Allergy Rash/Hives Verified 03/16/18 01:37 [From Cipro] ibuprofen [From Motrin] Allergy Anaphylaxis Verified 03/16/18 01:37 Iodinated Contrast- Oral and Allergy Swelling Verified 03/16/18 01:37 IV Dye [Iodinated Contrast Media - IV Dye] Penicillins Allergy Unknown Verified 03/16/18 01:37 Childhood Review of Systems ROS Statement: Those systems with pertinent positive or pertinent negative responses have been documented in the HPI. ROS Other: All systems not noted in ROS Statement are negative. Past Medical History Past Medical History: CVA/TIA, Hypertension, Myocardial Infarction ([place]) Last Myocardial Infarction Date:: 2007 History of Any Multi-Drug Resistant Organisms: None Reported Past Surgical History: Section, Heart Catheterization, Hysterectomy, Uterine Ablation Past Anesthesia/Blood Transfusion Reactions: No Reported Reaction Past Psychological History: Anxiety Smoking Status: Current every day smoker Past Alcohol Use History: None Reported Past Drug Use History: Marijuana General Exam Limitations: no limitations General appearance: alert, in no apparent distress, other (This is a well- developed, well-nourished adult female patient in no acute distress. Vital signs upon presentation are temperature 98.3F, pulse 119, respirations 16, blood pressure 132/87, pulse ox 100% on room air.) Eye exam: Present: normal appearance, PERRL, EOMI. Absent: scleral icterus, conjunctival injection, periorbital swelling Respiratory exam: Present: normal lung sounds bilaterally. Absent: respiratory distress, wheezes, rales, rhonchi, stridor Cardiovascular Exam: Present: regular rate, normal rhythm, normal heart sounds. Absent: systolic murmur, diastolic murmur, rubs, gallop, clicks GI/Abdominal exam: Present: soft, normal bowel sounds. Absent: distended, tenderness, guarding, rebound, rigid External exam: Present: normal external exam Speculum exam: Present: vaginal bleeding (Light vaginal bleeding noted from the cervical os) By manual exam: Present: normal by manual exam Neurological exam: Present: alert, oriented X3, CN II-XII intact Psychiatric exam: Present: normal affect, normal mood Skin exam: Present: warm, dry, intact, normal color. Absent: rash Course Vital Signs 03/16/18 03/16/18 03/16/18 01:34 02:01 03:15 Temperature 98.3 F Pulse Rate 119 H 82 Respiratory 16 18 19 Rate Blood Pressure 132/87 142/78 O2 Sat by Pulse 100 100 Oximetry 03/16/18 03:53 Temperature 98.9 F Pulse Rate 82 Respiratory 17 Rate Blood Pressure 122/72 O2 Sat by Pulse 99 Oximetry Medical Decision Making - Medical Decision Making 42-year-old female patient with past medical history significant for gastroparesis and chronic abdominal pain presents the emergency department today for evaluation of left lower quadrant abdominal pain and vaginal bleeding. Physical examination did reveal light vaginal bleeding noted from the cervical os. Patient did have ablation approximately 10 years ago. Abdomen was soft and nontender. Labs reviewed and were unremarkable. KUB x- ray of the abdomen showed overall nonobstructive bowel gas pattern. I did discuss findings and results with the patient. She is instructed to follow-up with the primary care physician as well as [facility] BOSS. She is given a prescription for outpatient transvaginal ultrasound for further evaluation of the bleeding. She is instructed to return here immediately for any new, worsening, or concerning symptoms. She verbalizes understanding and agrees with this plan. - Lab Data Result diagrams: 03/16/18 01:45 03/16/18 01:45 Lab Results 03/16/18 03/16/18 03/16/18 Range/Units 01:45 01:45 01:45 WBC 10.6 (3.8-10.6) k/uL RBC 4.33 (3.80-5.40) m/uL Hgb 13.3 (11.4-16.0) gm/dL Hct 39.5 (34.0-46.0) % MCV 91.3 (80.0-100.0) fL MCH 30.6 (25.0-35.0) pg MCHC 33.6 (31.0-37.0) g/dL RDW 13.2 (11.5-15.5) % Plt Count 244 (150-450) k/uL Neutrophils % 60 % Lymphocytes % 30 % Monocytes % 4 % Eosinophils % 5 % Basophils % 0 % Neutrophils # 6.4 (1.3-7.7) k/uL Lymphocytes # 3.2 (1.0-4.8) k/uL Monocytes # 0.4 (0-1.0) k/uL Eosinophils # 0.5 (0-0.7) k/uL Basophils # 0.0 (0-0.2) k/uL Sodium 142 (137-145) mmol/L Potassium 3.5 (3.5-5.1) mmol/L Chloride 108 H (98-107) mmol/L Carbon Dioxide 22 (22-30) mmol/L Anion Gap 12 mmol/L BUN 10 (7-17) mg/dL Creatinine 0.40 L (0.52-1.04) mg/dL Est GFR (CKD-EPI)AfAm >90 (>60 ml/min/1.73 sqM) Est GFR (CKD-EPI)NonAf >90 (>60 ml/min/1.73 sqM) Glucose 89 (74-99) mg/dL Calcium 10.0 (8.4-10.2) mg/dL Total Bilirubin <0.1 L (0.2-1.3) mg/dL AST 15 (14-36) U/L ALT 24 (9-52) U/L Alkaline Phosphatase 49 (38-126) U/L Total Protein 6.9 (6.3-8.2) g/dL Albumin 4.3 (3.5-5.0) g/dL Amylase 58 (30-110) U/L Lipase 65 (23-300) U/L Urine Color Colorless Urine Appearance Clear (Clear) Urine pH 6.0 (5.0-8.0) Ur Specific [place] 1.003 (1.001-1.035) Urine Protein Negative (Negative) Urine Glucose (UA) Negative (Negative) Urine Ketones Negative (Negative) Urine Blood Small H (Negative) Urine Nitrite Negative (Negative) Urine Bilirubin Negative (Negative) Urine Urobilinogen <2.0 (<2.0) mg/dL Ur Leukocyte Esterase Negative (Negative) Urine RBC <1 (0-5) /hpf Urine WBC 1 (0-5) /hpf Ur Squamous Epith Cells 2 (0-4) /hpf Urine Bacteria Rare H (None) /hpf - Radiology Data Radiology results: report reviewed, image reviewed Two-view x-ray of the abdomen is obtained. There is no sign of intestinal obstruction or pneumoperitoneum. Fecal pattern is normal. Lung bases are clear. There are no pathologic calcifications. Impression by Dr. Stover shows nonacute abdomen with no change. Disposition Clinical Impression: Abdominal pain, Dysfunctional uterine bleeding Disposition: HOME SELF-CARE Condition: Good Instructions: Dysfunctional Uterine Bleeding (ED), Abdominal Pain (ED) Additional Instructions: Follow-up outpatient for ultrasound, call the hospital to make appointment. Follow-up with primary care physician and QUARR[facility] BOSS as soon as possible. Return here immediately for any new, worsening, or concerning symptoms. Prescriptions: Dicyclomine [Bentyl] 20 mg PO QID #10 tablet Metoclopramide [Reglan] 10 mg PO Q8H PRN #10 tab PRN Reason: Vomiting Is patient prescribed a controlled substance at d/c from ED?: No Referrals: Shweta Herndon MD [REFERRING] - 1-2 days Susi Bella DO [Doctor of Osteopathic Medicine] - 1-2 days Time of Disposition: 03:46
[2018-03-16 02:25] LABS: Basophils % (A) 0 %; Eosinophils # (A) 0.5 k/uL (0-0.7); Eosinophils % (A) 5 %; HCT 39.5 % (34.0-46.0); HGB 13.3 gm/dL (11.4-16.0); Lymphocytes # (A) 3.2 k/uL (1.0-4.8); Lymphocytes % (A) 30 %; MCH 30.6 pg (25.0-35.0); MCHC 33.6 g/dL (31.0-37.0); MCV 91.3 fL (80.0-100.0); Mean Platelet Volume 7.8; Monocytes # (A) 0.4 k/uL (0-1.0); Monocytes % (A) 4 %; Neutrophils # (A) 6.4 k/uL (1.3-7.7); Neutrophils % (A) 60 %; Platelet Count 244 k/uL (150-450); RBC 4.33 m/uL (3.80-5.40); RDW 13.2 % (11.5-15.5); WBC 10.6 k/uL (3.8-10.6)
[2018-03-16 02:26] LABS: Appearance,Urine Clear (Clear); Bacteria,Urine Rare /hpf; Bilirubin,Urine Negative (Negative); Blood,Urine Small (Negative); Color,Urine Colorless; Glucose,Urine (UA) Negative (Negative); Ketones,Urine Negative (Negative); Leukocyte Esterase,Urine Negative (Negative); Nitrite,Urine Negative (Negative); Protein,Urine Negative (Negative); RBC,Urine <1 /hpf (0-5); Specific Gravity,Urine 1.003 (1.001-1.035); Squamous Epithelial Cell,Urine 2 /hpf (0-4); Urobilinogen,Urine <2.0 mg/dL (<2.0); WBC,Urine 1 /hpf (0-5)
[2018-03-16 02:33] LABS: ALT 24 U/L (9-52); AST 15 U/L (14-36); Albumin 4.3 g/dL (3.5-5.0); Alkaline Phosphatase 49 U/L (38-126); Amylase 58 U/L (30-110); Anion Gap 12 mmol/L; Blood Urea Nitrogen 10 mg/dL (7-17); Carbon Dioxide 22 mmol/L (22-30); Chloride 108 mmol/L (98-107); Glucose 89 mg/dL (74-99); Lipase 65 U/L (23-300); Potassium 3.5 mmol/L (3.5-5.1); Sodium 142 mmol/L (137-145); Total Bilirubin <0.1 mg/dL (0.2-1.3); Total Protein 6.9 g/dL (6.3-8.2)
--- NOTE | 2018-03-16 02:48 | XR ---
EXAMINATION TYPE: XR KUB DATE OF EXAM: 03/16/2018 COMPARISON: 12/11/2016 HISTORY: Left lower quadrant pain TECHNIQUE: 2 views FINDINGS: There is no sign of intestinal obstruction or pneumoperitoneum. Fecal pattern is normal. Gabrielle ng bases are clear. There are no pathologic calcifications. IMPRESSION: Nonacute abdomen. No change.
[2018-03-16 03:16] VITALS: PULSE 82
[2018-03-16] MEDS ORDERED: METOCLOPRAMIDE 5 MG/ML 2 ML VIAL IVP STA (03:18)
[2018-03-16] MEDS ORDERED: DICYCLOMINE 10 MG/ML 2 ML AMP IM STA (03:18)
[2018-03-16 03:58] VITALS: BP 122/72; RESP 17; TEMP 98.9
== END 2018-03-16 04:03 | disposition home or self-care (01) ==
LOC: EC 01:28
DX: N93.8 Other specified abnormal uterine and vaginal bleeding (principal); M54.5 Low back pain; R10.32 Left lower quadrant pain; F17.200 Nicotine dependence, unspecified, uncomplicated; Z88.0 Allergy status to penicillin; Z88.1 Allergy status to other antibiotic agents; Z88.6 Allergy status to analgesic agent; Z91.041 Radiographic dye allergy status; Z98.890 Other specified postprocedural states; Z90.710 Acquired absence of both cervix and uterus; Z53.20 Procedure and treatment not carried out because of patient's decision for unspecified reasons
CPT/HCPCS: 36415; 80053; 82150; 83690; 85025; 81001; 74018; 99284; 96374; 96375; 96361; J2765; J2270

== ENCOUNTER 2019-02-21 01:09 | Observation (INO) | payer OTHER ==
[2019-02-21] MEDS ORDERED: MORPHINE SULFATE 4 MG/ML SYRINGE IV STA (01:41)
[2019-02-21] MEDS ORDERED: KETOROLAC 30 MG/ML 1 ML VIAL IVP STA (01:41)
[2019-02-21] MEDS ORDERED: SODIUM CHLORIDE 0.9% 1,000 ML IV STA ×2 (01:41)
[2019-02-21] MEDS ORDERED: SODIUM CHLORIDE 0.9% 500 ML 500 ML IV STA (01:41)
--- NOTE | 2019-02-21 01:45 | ED ---
Abdominal Pain HPI - General Chief Complaint: Abdominal Pain Stated Complaint: blood in urine,Back pain,abd pain,nausea,fever Time Seen by Provider: 02/21/19 01:42 Source: patient, family, RN notes reviewed, old records reviewed Mode of arrival: ambulatory Limitations: no limitations - History of Present Illness Initial Comments: This is a 44-year-old female the ER for evaluation. Patient coming in for flank pain and abdominal pain. No dysuria positive nausea and vomiting. And she also states that she has fevers. No travel history no sick contacts of family members complaints. No recent surgical history. Patient has no modifying factors for symptoms at home. Patient has epigastric abdominal pain but is more concerned about the left flank pain rating to left groin with history of kidney stones. MD Complaint: abdominal pain (Epigastric), flank pain ((Flank radiating to groin) -: days(s) Location: LLQ, epigastric, L flank Radiation: suprapubic Severity: moderate Severity scale (1-10): 8 Quality: stabbing, aching Consistency: intermittent Improves With: nothing Worsens With: nothing Associated Symptoms: nausea, vomiting - Related Data Home Medications Medication Instructions Recorded Confirmed Amitriptyline HCl [Elavil] 25 mg PO HS 02/21/19 02/21/19 Sertraline [Zoloft] 100 mg PO DAILY 02/21/19 02/21/19 Allergies Allergy/AdvReac Type Severity Reaction Status Date / Time Iodinated Contrast- Oral and Allergy Severe Anaphylaxis Verified 02/21/19 19:31 IV Dye [Iodinated Contrast Media - IV Dye] Penicillins Allergy Severe Anaphylaxis Verified 02/21/19 19:31 bee venom protein (honey bee) Allergy Anaphylaxis Verified 02/21/19 19:31 ciprofloxacin [From Cipro] Allergy Rash/Hives Verified 02/21/19 19:31 ciprofloxacin HCl Allergy Rash/Hives Verified 02/21/19 19:31 [From Cipro] ibuprofen [From Motrin] AdvReac Nausea & Verified 02/21/19 19:31 Vomiting Review of Systems ROS Statement: Those systems with pertinent positive or pertinent negative responses have been documented in the HPI. ROS Other: All systems not noted in ROS Statement are negative. Past Medical History Past Medical History: CVA/TIA, Hypertension, Myocardial Infarction ([place]) Last Myocardial Infarction Date:: 2007 History of Any Multi-Drug Resistant Organisms: None Reported Past Surgical History: Section, Heart Catheterization, Hysterectomy, Uterine Ablation Past Anesthesia/Blood Transfusion Reactions: No Reported Reaction Past Psychological History: Anxiety Smoking Status: Current every day smoker Past Alcohol Use History: None Reported Past Drug Use History: Marijuana - Past Family History Mother Family Medical History: No Reported History General Exam Limitations: no limitations General appearance: alert, in no apparent distress Head exam: Present: atraumatic, normocephalic, normal inspection Eye exam: Present: normal appearance, PERRL, EOMI. Absent: scleral icterus, conjunctival injection, periorbital swelling ENT exam: Present: normal exam, mucous membranes moist Neck exam: Present: normal inspection. Absent: tenderness, meningismus, lymphadenopathy Respiratory exam: Present: normal lung sounds bilaterally. Absent: respiratory distress, wheezes, rales, rhonchi, stridor Cardiovascular Exam: Present: normal rhythm, tachycardia, normal heart sounds. Absent: systolic murmur, diastolic murmur, rubs, gallop, clicks GI/Abdominal exam: Present: distended, tenderness, guarding, normal bowel sounds. Absent: rebound, rigid Extremities exam: Present: normal inspection, full ROM, normal capillary refill. Absent: tenderness, pedal edema, joint swelling, calf tenderness Back exam: Present: normal inspection Neurological exam: Present: alert, oriented X3, CN II-XII intact Psychiatric exam: Present: normal affect, normal mood Skin exam: Present: warm, dry, intact, normal color. Absent: rash Course Vital Signs 02/21/19 02/21/19 01:36 03:59 Temperature 121 F H 98.5 F Pulse Rate 116 H 88 Respiratory 20 17 Rate Blood Pressure 137/79 120/86 O2 Sat by Pulse 99 97 Oximetry Medical Decision Making - Medical Decision Making 43 female the ER for evaluation of bowel pain flank pain. Likely underlying gallbladder disease. Will admit for surgical consult and evaluation. - Lab Data Result diagrams: 02/21/19 02:20 02/21/19 02:20 Lab Results 02/21/19 02/21/19 02/21/19 Range/Units 02:20 02:20 02:20 WBC 10.1 (3.8-10.6) k/uL RBC 4.49 (3.80-5.40) m/uL Hgb 13.5 (11.4-16.0) gm/dL Hct 40.4 (34.0-46.0) % MCV 90.0 (80.0-100.0) fL MCH 30.2 (25.0-35.0) pg MCHC 33.5 (31.0-37.0) g/dL RDW 14.1 (11.5-15.5) % Plt Count 326 (150-450) k/uL Neutrophils % 59 % Lymphocytes % 28 % Monocytes % 5 % Eosinophils % 6 % Basophils % 1 % Neutrophils # 5.9 (1.3-7.7) k/uL Lymphocytes # 2.8 (1.0-4.8) k/uL Monocytes # 0.5 (0-1.0) k/uL Eosinophils # 0.6 (0-0.7) k/uL Basophils # 0.1 (0-0.2) k/uL Sodium 139 (137-145) mmol/L Potassium 4.1 (3.5-5.1) mmol/L Chloride 108 H (98-107) mmol/L Carbon Dioxide 19 L (22-30) mmol/L Anion Gap 12 mmol/L BUN 8 (7-17) mg/dL Creatinine 0.34 L (0.52-1.04) mg/dL Est GFR (CKD-EPI)AfAm >90 (>60 ml/min/1.73 sqM) Est GFR (CKD-EPI)NonAf >90 (>60 ml/min/1.73 sqM) Glucose 108 H (74-99) mg/dL Plasma Lactic Acid Rey 1.1 (0.7-2.0) mmol/L Calcium 10.1 (8.4-10.2) mg/dL Total Bilirubin 0.3 (0.2-1.3) mg/dL AST 18 (14-36) U/L ALT 9 (9-52) U/L Alkaline Phosphatase 81 (38-126) U/L Creatine Kinase 86 (30-135) U/L Total Protein 7.9 (6.3-8.2) g/dL Albumin 4.7 (3.5-5.0) g/dL Amylase 67 (30-110) U/L Lipase 50 (23-300) U/L Urine Color Urine Appearance (Clear) Urine pH (5.0-8.0) Ur Specific [place] (1.001-1.035) Urine Protein (Negative) Urine Glucose (UA) (Negative) Urine Ketones (Negative) Urine Blood (Negative) Urine Nitrite (Negative) Urine Bilirubin (Negative) Urine Urobilinogen (<2.0) mg/dL Ur Leukocyte Esterase (Negative) 02/21/19 Range/Units 02:20 WBC (3.8-10.6) k/uL RBC (3.80-5.40) m/uL Hgb (11.4-16.0) gm/dL Hct (34.0-46.0) % MCV (80.0-100.0) fL MCH (25.0-35.0) pg MCHC (31.0-37.0) g/dL RDW (11.5-15.5) % Plt Count (150-450) k/uL Neutrophils % % Lymphocytes % % Monocytes % % Eosinophils % % Basophils % % Neutrophils # (1.3-7.7) k/uL Lymphocytes # (1.0-4.8) k/uL Monocytes # (0-1.0) k/uL Eosinophils # (0-0.7) k/uL Basophils # (0-0.2) k/uL Sodium (137-145) mmol/L Potassium (3.5-5.1) mmol/L Chloride (98-107) mmol/L Carbon Dioxide (22-30) mmol/L Anion Gap mmol/L BUN (7-17) mg/dL Creatinine (0.52-1.04) mg/dL Est GFR (CKD-EPI)AfAm (>60 ml/min/1.73 sqM) Est GFR (CKD-EPI)NonAf (>60 ml/min/1.73 sqM) Glucose (74-99) mg/dL Plasma Lactic Acid Rey (0.7-2.0) mmol/L Calcium (8.4-10.2) mg/dL Total Bilirubin (0.2-1.3) mg/dL AST (14-36) U/L ALT (9-52) U/L Alkaline Phosphatase (38-126) U/L Creatine Kinase (30-135) U/L Total Protein (6.3-8.2) g/dL Albumin (3.5-5.0) g/dL Amylase (30-110) U/L Lipase (23-300) U/L Urine Color Light Yellow Urine Appearance Clear (Clear) Urine pH 6.0 (5.0-8.0) Ur Specific [place] 1.012 (1.001-1.035) Urine Protein Negative (Negative) Urine Glucose (UA) Negative (Negative) Urine Ketones Negative (Negative) Urine Blood Negative (Negative) Urine Nitrite Negative (Negative) Urine Bilirubin Negative (Negative) Urine Urobilinogen <2.0 (<2.0) mg/dL Ur Leukocyte Esterase Negative (Negative) - Radiology Data Radiology results: report reviewed (Ultrasound gallbladder is positive for acute disease, CT head and pelvis negative for acute disease), image reviewed Disposition Clinical Impression: Gastroparesis, Abdominal pain Disposition: ADMITTED IP TO THIS HOSP Condition: Fair Is patient prescribed a controlled substance at d/c from ED?: No
--- NOTE | 2019-02-21 02:12 | CT ---
EXAM: CT Abdomen and Pelvis Without Intravenous Contrast CLINICAL HISTORY: ITS.REASON CT Reason: abdominal pain TECHNIQUE: Axial computed tomography images of the abdomen and pelvis without intravenous contrast. CTDI is 7 mGy and DLP is 377 mGy-cm. This CT exam was performed using one or more of the following dose reduction techniques: automated exposure control, adjustment of the mA and/or kV according to patient size, and/or use of iterative reconstruction technique. COMPARISON: 11/22/17 CT abdomen FINDINGS: Lung bases: No mass. No consolidation. ABDOMEN: Liver: Unremarkable. Gallbladder and bile ducts: Distended with possible sludge. Pancreas: No ductal dilation. Spleen: Unremarkable. Adrenals: Unremarkable. Kidneys and ureters: No obstructing stones. No hydronephrosis. Stomach and bowel: No bowel obstruction. No bowel wall thickening. PELVIS: Appendix: No evidence of appendicitis. Bladder: No stones. Mildly thickened. Reproductive: Unremarkable. ABDOMEN and PELVIS: Intraperitoneal space: Unremarkable. Bones/joints: No acute fractures. Soft tissues: Unremarkable. Vasculature: No abdominal aortic aneurysm. Lymph nodes: No enlarged lymph nodes. IMPRESSION: The gallbladder is distended with possible underlying sludge. Mildly thickened bladder wall, correlate with cystitis.
[2019-02-21 02:33] LABS: Appearance,Urine Clear (Clear); Basophils # (A) 0.1 k/uL (0-0.2); Basophils % (A) 1 %; Bilirubin,Urine Negative (Negative); Blood,Urine Negative (Negative); Color,Urine Light Yellow; Eosinophils # (A) 0.6 k/uL (0-0.7); Eosinophils % (A) 6 %; Glucose,Urine (UA) Negative (Negative); HCT 40.4 % (34.0-46.0); HGB 13.5 gm/dL (11.4-16.0); Ketones,Urine Negative (Negative); Leukocyte Esterase,Urine Negative (Negative); Lymphocytes # (A) 2.8 k/uL (1.0-4.8); Lymphocytes % (A) 28 %; MCH 30.2 pg (25.0-35.0); MCHC 33.5 g/dL (31.0-37.0); Mean Platelet Volume 7.3; Monocytes # (A) 0.5 k/uL (0-1.0); Monocytes % (A) 5 %; Neutrophils # (A) 5.9 k/uL (1.3-7.7); Neutrophils % (A) 59 %; Nitrite,Urine Negative (Negative); Platelet Count 326 k/uL (150-450); Protein,Urine Negative (Negative); RBC 4.49 m/uL (3.80-5.40); RDW 14.1 % (11.5-15.5); Specific Gravity,Urine 1.012 (1.001-1.035); Urobilinogen,Urine <2.0 mg/dL (<2.0); WBC 10.1 k/uL (3.8-10.6)
[2019-02-21 02:42] LABS: ALT 9 U/L (9-52); AST 18 U/L (14-36); Albumin 4.7 g/dL (3.5-5.0); Alkaline Phosphatase 81 U/L (38-126); Amylase 67 U/L (30-110); Anion Gap 12 mmol/L; Blood Urea Nitrogen 8 mg/dL (7-17); Calcium 10.1 mg/dL (8.4-10.2); Carbon Dioxide 19 mmol/L (22-30); Chloride 108 mmol/L (98-107); Creatine Kinase 86 U/L (30-135); Glucose 108 mg/dL (74-99); Lipase 50 U/L (23-300); Potassium 4.1 mmol/L (3.5-5.1); Sodium 139 mmol/L (137-145); Total Bilirubin 0.3 mg/dL (0.2-1.3); Total Protein 7.9 g/dL (6.3-8.2)
--- NOTE | 2019-02-21 03:23 | US ---
EXAM: US Abdomen Limited, Right Upper Quadrant CLINICAL HISTORY: ITS.REASON US Reason: Pain TECHNIQUE: Real-time ultrasound of the right upper quadrant with image documentation. COMPARISON: No relevant prior studies available. FINDINGS: Liver: Unremarkable. No mass. No intrahepatic bile duct dilation. Gallbladder: No gallstones. Distended. Positive Kirkland's sign. Common bile duct: Dilated to 1 cm. Pancreas: Unremarkable. Right kidney: No stones. No solid mass. No hydronephrosis. IMPRESSION: 1. Gallbladder is distended with no underlying stone or sludge. Positive Kirkland's sign. These findings are nonspecific. 2. CBD is dilated to 1 cm with no underlying stones identified, however this does not exclude possibility of choledocholithiasis. Correlate with ERCP/MRCP if further evaluation is warranted.
[2019-02-21] MEDS ORDERED: SODIUM CHLORIDE 0.9% 1,000 ML IV ONE (03:38)
[2019-02-21] MEDS ORDERED: HYDROmorphone 1 MG/ML 1 ML SYRINGE IVP PRN (03:39)
[2019-02-21] MEDS ORDERED: ONDANSETRON 4 MG/2 ML VIAL IVP STA (03:39)
[2019-02-21] MEDS ORDERED: HYDROmorphone 1 MG/ML 1 ML SYRINGE IVP STA (03:39)
[2019-02-21] MEDS ORDERED: ONDANSETRON 4 MG/2 ML VIAL IVP PRN (03:39)
[2019-02-21 05:26] VITALS: BMI 20.3
[2019-02-21 06:08] VITALS: TEMP 98.1
[2019-02-21 09:23] VITALS: BP 105/65; PULSE 80; RESP 16
--- NOTE | 2019-02-21 10:55 | P.DS ---
Providers Date of admission: 02/21/19 03:38 Attending physician: Amari Price Consults: 02/21/19 03:38 Consult Physician Routine Consulting Provider: Rekha Albright Consult Reason/Comments: avani Do you want consulting provider notified?: Yes Consult Physician Routine Consulting Provider: Juan Forman Consult Reason/Comments: avani Do you want consulting provider notified?: Yes Primary care physician: Adam Burns [facility] Course: Patient left AMA before being seen by our service Patient Condition at Discharge: Fair Plan - Discharge Summary Discharge Rx Participant: No New Discharge Prescriptions: No Action Sertraline [Zoloft] 100 mg PO DAILY Amitriptyline HCl [Elavil] 25 mg PO HS Discharge Medication List Amitriptyline HCl [Elavil] 25 mg PO HS 02/21/19 [History] Sertraline [Zoloft] 100 mg PO DAILY 02/21/19 [History] Follow up Appointment(s)/Referral(s): Adam Burns DO [Primary Care Provider] - 1-2 days Discharge Disposition: Left Against Medical Advice
--- NOTE | 2019-02-21 10:55 | P.HPIM ---
History of Present Illness Patient left AMA before being seen by our service Past Medical History Past Medical History: CVA/TIA, Hypertension, Myocardial Infarction ([place]), Pneumonia Additional Past Medical History / Comment(s): factor 5 clotting disorder, cva- 2008 (left sided weakness),mi-2007, diabetes type 2. Last Myocardial Infarction Date:: 2007 History of Any Multi-Drug Resistant Organisms: None Reported Past Surgical History: Section, Heart Catheterization, Hysterectomy, Uterine Ablation Past Anesthesia/Blood Transfusion Reactions: No Reported Reaction Past Psychological History: Anxiety, Depression Smoking Status: Former smoker Past Alcohol Use History: None Reported Past Drug Use History: Marijuana Additional Drug Use History / Comment(s): smokes 1/2 ppd for 20 years, smokes marijuana about twice a day. - Past Family History Mother Family Medical History: No Reported History Medications and Allergies Home Medications Medication Instructions Recorded Confirmed Type Amitriptyline HCl [Elavil] 25 mg PO HS 02/21/19 02/21/19 History Sertraline [Zoloft] 100 mg PO DAILY 02/21/19 02/21/19 History Allergies Allergy/AdvReac Type Severity Reaction Status Date / Time Iodinated Contrast- Oral and Allergy Severe Anaphylaxis Verified 02/21/19 05:28 IV Dye [Iodinated Contrast Media - IV Dye] Penicillins Allergy Severe Anaphylaxis Verified 02/21/19 05:28 bee venom protein (honey bee) Allergy Anaphylaxis Verified 02/21/19 05:28 ciprofloxacin [From Cipro] Allergy Rash/Hives Verified 02/21/19 05:28 ciprofloxacin HCl Allergy Rash/Hives Verified 02/21/19 07:41 [From Cipro] ibuprofen [From Motrin] AdvReac Nausea & Verified 02/21/19 05:28 Vomiting Physical Exam Vitals: Vital Signs Temp Pulse Pulse Resp BP BP Pulse Ox 02/21/19 08:40 98.1 F 80 16 105/65 97 02/21/19 06:00 98.1 F 71 18 120/79 99 02/21/19 04:55 19 02/21/19 03:59 98.5 F 88 17 120/86 97 02/21/19 01:36 121 F H 116 H 20 137/79 99 Intake and Output 02/20/19 02/21/19 02/21/19 22:59 06:59 14:59 Intake Total 0 Balance 0 Intake: Oral 0 Other: Weight 58.967 kg Results CBC & Chem 7: 02/21/19 02:20 02/21/19 02:20 Labs: Abnormal Lab Results - Last 24 Hours (Table) 02/21/19 Range/Units 02:20 Chloride 108 H (98-107) mmol/L Carbon Dioxide 19 L (22-30) mmol/L Creatinine 0.34 L (0.52-1.04) mg/dL Glucose 108 H (74-99) mg/dL Thrombosis Risk Factor Assmnt - Choose All That Apply Any of the Below Risk Factors Present?: Yes Each Factor Represents 1 point: Age 41-60 years Other Risk Factors: No Other congenital or acquired thrombophilia - If yes, enter type in comment: No Thrombosis Risk Factor Assessment Total Risk Factor Score: 1 Thrombosis Risk Factor Assessment Level: Low Risk
--- NOTE | 2019-02-21 12:06 | P.GSCN ---
History of Present Illness Consult date: 02/21/19 Reason for Consult: Possible cholecystitis History of present illness: There was sudden onset of pain around 3:00. It started in the back and radiates around towards the left groin. It hurts worse if she moves. It still present but less if she lays still. No history of back injury. She's never had anything like this in the past. She's had nausea but no vomiting. No upper abdominal pain, heartburn, indigestion. No jaundice, tea-colored urine, acholic stool. Bowels are moving normally. 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 Last Myocardial Infarction Date:: 2007 History of Any Multi-Drug Resistant Organisms: None Reported Past Surgical History: Section, Heart Catheterization, Hysterectomy, Uterine Ablation Past Anesthesia/Blood Transfusion Reactions: No Reported Reaction Past Psychological History: Anxiety, Depression Smoking Status: Former smoker Past Alcohol Use History: None Reported Past Drug Use History: Marijuana Additional Drug Use History / Comment(s): smokes 1/2 ppd for 20 years, smokes marijuana about twice a day. - Past Family History Mother Family Medical History: No Reported History Medications and Allergies Home Medications Medication Instructions Recorded Confirmed Type Amitriptyline HCl [Elavil] 25 mg PO HS 02/21/19 02/21/19 History Sertraline [Zoloft] 100 mg PO DAILY 02/21/19 02/21/19 History Allergies Allergy/AdvReac Type Severity Reaction Status Date / Time Iodinated Contrast- Oral and Allergy Severe Anaphylaxis Verified 02/21/19 05:28 IV Dye [Iodinated Contrast Media - IV Dye] Penicillins Allergy Severe Anaphylaxis Verified 02/21/19 05:28 bee venom protein (honey bee) Allergy Anaphylaxis Verified 02/21/19 05:28 ciprofloxacin [From Cipro] Allergy Rash/Hives Verified 02/21/19 05:28 ciprofloxacin HCl Allergy Rash/Hives Verified 02/21/19 07:41 [From Cipro] ibuprofen [From Motrin] AdvReac Nausea & Verified 02/21/19 05:28 Vomiting Surgical - Exam Osteopathic Statement: *. No significant issues noted on an osteopathic structural exam other than those noted in the History and Physical/Consult. Vital Signs Temp Pulse Resp BP Pulse Ox 121 F H 116 H 20 137/79 99 02/21/19 01:36 02/21/19 01:36 02/21/19 01:36 02/21/19 01:36 02/21/19 01:36 - General well developed, well nourished, no distress - Eyes normal ocular movement - ENT normal mucosa - Neck trachea midline - Respiratory normal respiratory effort, clear to auscultation - Cardiovascular Rhythm: regular - Abdomen Abdomen: soft, non tender, bowel sounds Hernia: no umbilical Mild tenderness with hip rock and in the left flank Results - Labs 02/21/19 02:20 02/21/19 02:20 Abnormal Lab Results - Last 24 Hours (Table) 02/21/19 Range/Units 02:20 Chloride 108 H (98-107) mmol/L Carbon Dioxide 19 L (22-30) mmol/L Creatinine 0.34 L (0.52-1.04) mg/dL Glucose 108 H (74-99) mg/dL Microbiology - Last 24 Hours (Table) 02/21/19 02:20 Urine Culture - Preliminary Urine,Voided Diabetes panel 02/21/19 Range/Units 02:20 Sodium 139 (137-145) mmol/L Potassium 4.1 (3.5-5.1) mmol/L Chloride 108 H (98-107) mmol/L Carbon Dioxide 19 L (22-30) mmol/L BUN 8 (7-17) mg/dL Creatinine 0.34 L (0.52-1.04) mg/dL Glucose 108 H (74-99) mg/dL Calcium 10.1 (8.4-10.2) mg/dL AST 18 (14-36) U/L ALT 9 (9-52) U/L Alkaline Phosphatase 81 (38-126) U/L Total Protein 7.9 (6.3-8.2) g/dL Albumin 4.7 (3.5-5.0) g/dL Calcium panel 02/21/19 Range/Units 02:20 Calcium 10.1 (8.4-10.2) mg/dL Albumin 4.7 (3.5-5.0) g/dL Pituitary panel 02/21/19 Range/Units 02:20 Sodium 139 (137-145) mmol/L Potassium 4.1 (3.5-5.1) mmol/L Chloride 108 H (98-107) mmol/L Carbon Dioxide 19 L (22-30) mmol/L BUN 8 (7-17) mg/dL Creatinine 0.34 L (0.52-1.04) mg/dL Glucose 108 H (74-99) mg/dL Calcium 10.1 (8.4-10.2) mg/dL Adrenal panel 02/21/19 Range/Units 02:20 Sodium 139 (137-145) mmol/L Potassium 4.1 (3.5-5.1) mmol/L Chloride 108 H (98-107) mmol/L Carbon Dioxide 19 L (22-30) mmol/L BUN 8 (7-17) mg/dL Creatinine 0.34 L (0.52-1.04) mg/dL Glucose 108 H (74-99) mg/dL Calcium 10.1 (8.4-10.2) mg/dL Total Bilirubin 0.3 (0.2-1.3) mg/dL AST 18 (14-36) U/L ALT 9 (9-52) U/L Alkaline Phosphatase 81 (38-126) U/L Total Protein 7.9 (6.3-8.2) g/dL Albumin 4.7 (3.5-5.0) g/dL - Imaging CT scan - abdomen: report reviewed, image reviewed Assessment and Plan (1) Flank pain Status: Acute Code(s): R10.9 - UNSPECIFIED ABDOMINAL PAIN SNOMED Code(s): 997371738 (2) Nausea Status: Acute Code(s): R11.0 - NAUSEA SNOMED Code(s): 290465992 (3) Common bile duct dilation Status: Acute Code(s): K83.8 - OTHER SPECIFIED DISEASES OF BILIARY TRACT SNOMED Code(s): 045114103 Plan: Patient has no signs of acute cholecystitis. There is no cholelithiasis seen. The common bile duct is dilated but the liver function tests are normal. This may be a normal variant. The pain seems to be more radicular in nature. I think the nausea is related to the pain. Currently nonsurgical.
== END 2019-02-21 10:14 | disposition left against medical advice (07) ==
LOC: EC 01:09 → 6PED 03:38
PROVIDERS: ADMIT Hospitalist; ATTEND Hospitalist
DX: R10.13 Epigastric pain (principal); R10.32 Left lower quadrant pain; R31.9 Hematuria, unspecified; M54.9 Dorsalgia, unspecified; R50.9 Fever, unspecified; R11.2 Nausea with vomiting, unspecified; K83.8 Other specified diseases of biliary tract; Z53.21 Procedure and treatment not carried out due to patient leaving prior to being seen by health care provider; I25.2 Old myocardial infarction; F41.9 Anxiety disorder, unspecified; F32.9 Major depressive disorder, single episode, unspecified; D68.51 Activated protein C resistance; I69.354 Hemiplegia and hemiparesis following cerebral infarction affecting left non-dominant side; F17.210 Nicotine dependence, cigarettes, uncomplicated; Z87.442 Personal history of urinary calculi; Z87.01 Personal history of pneumonia (recurrent); Z79.899 Other long term (current) drug therapy; Z88.0 Allergy status to penicillin; Z88.8 Allergy status to other drugs, medicaments and biological substances; Z88.1 Allergy status to other antibiotic agents; Z91.030 Bee allergy status; Z91.041 Radiographic dye allergy status
CPT/HCPCS: 96376; 96361; 96365; 96375; 99285; 36415; 80053; 82150; 82550; 83605; 83690; 85025; 81003; 87040; 87086; 76705; 74176; G0378; J2270; J2405; J0696; J1885; J1170

== ENCOUNTER 2019-02-21 18:17 | Emergency (ER) | payer OTHER ==
[2019-02-21 19:31] VITALS: BP 136/84; PULSE 85; RESP 17; TEMP 99.4
[2019-02-21 19:47] LABS: Basophils % (A) 0 %; Eosinophils # (A) 0.3 k/uL (0-0.7); Eosinophils % (A) 3 %; HGB 12.6 gm/dL (11.4-16.0); Lymphocytes # (A) 2.2 k/uL (1.0-4.8); Lymphocytes % (A) 19 %; MCH 30.2 pg (25.0-35.0); MCHC 33.2 g/dL (31.0-37.0); MCV 90.9 fL (80.0-100.0); Mean Platelet Volume 7.3; Monocytes # (A) 0.4 k/uL (0-1.0); Monocytes % (A) 3 %; Neutrophils # (A) 8.2 k/uL (1.3-7.7); Neutrophils % (A) 73 %; Platelet Count 290 k/uL (150-450); RBC 4.18 m/uL (3.80-5.40); RDW 14.2 % (11.5-15.5); WBC 11.3 k/uL (3.8-10.6)
[2019-02-21 20:02] LABS: ALT 12 U/L (9-52); AST 18 U/L (14-36); Albumin 4.3 g/dL (3.5-5.0); Alkaline Phosphatase 72 U/L (38-126); Amylase 56 U/L (30-110); Anion Gap 8 mmol/L; Blood Urea Nitrogen 5 mg/dL (7-17); Calcium 9.7 mg/dL (8.4-10.2); Carbon Dioxide 20 mmol/L (22-30); Chloride 113 mmol/L (98-107); Glucose 83 mg/dL (74-99); Lipase 90 U/L (23-300); Potassium 3.7 mmol/L (3.5-5.1); Sodium 141 mmol/L (137-145); Total Bilirubin 0.2 mg/dL (0.2-1.3); Total Protein 7.3 g/dL (6.3-8.2)
== END 2019-02-21 21:23 | disposition left against medical advice (07) ==
LOC: EC 18:17
DX: M54.9 Dorsalgia, unspecified (principal); R50.9 Fever, unspecified
CPT/HCPCS: 36415; 80053; 82150; 83690; 85025; 99499

== ENCOUNTER → 2020-06-18 | Outpatient (CLI) | payer OTHER ==
--- NOTE | 2020-06-18 15:18 | XR ---
Cervical spine HISTORY: Migraine, neck pain 5 views of the cervical spine, correlation prior exam 10/22/2010 Odontoid view is limited. Reversal the normal cervical lordosis may be due to muscle spasm. Cervical vertebral bodies show preserved height, alignment, and bone mineralization. Disc spaces are maintaine d. Prevertebral soft tissues are normal. No evident foraminal encroachment. IMPRESSION: Loss of lordosis.
== END | disposition home or self-care (01) ==
LOC: RADXRYALE 14:38
PROVIDERS: ATTEND Physician Assistant Medical
DX: M53.82 Other specified dorsopathies, cervical region (principal)
CPT/HCPCS: 72050

== ENCOUNTER → 2021-03-24 | Outpatient (CLI) | payer OTHER ==
--- NOTE | 2021-03-24 11:00 | XR ---
EXAMINATION TYPE: XR chest 2V DATE OF EXAM: 03/24/2021 COMPARISON: 11/08/2016 TECHNIQUE: PA and lateral views submitted. HISTORY: Chest pain FINDINGS: The lungs are clear and there is no pneumothorax, pleural effusion, or focal pneumonia. Heart size normal. Curvature of the spine. No overt failure. IMPRESSION: 1. No acute process.
== END | disposition home or self-care (01) ==
LOC: RADXRYALE 10:44
PROVIDERS: ATTEND Physician Assistant Medical
DX: R07.9 Chest pain, unspecified (principal)
CPT/HCPCS: 71046

== ENCOUNTER → 2022-01-21 | Outpatient (CLI) | payer OTHER ==
--- NOTE | 2022-01-21 15:58 | XR ---
KUB HISTORY: Lower abdomen pain Frontal KUB submitted and correlated to prior KUB 03/16/2018 There is retained fecal debris throughout the distribution of the colon. No evident bowel obstruction or pneumoperitoneum. No pathologic calcification. IMPRESSION: Correlate for fecal stasis.
--- NOTE | 2022-01-21 16:02 | XR ---
AP pelvis HISTORY: Lower abdomen pain Single frontal view the pelvis No comparisons There is no evident bowel obstruction or pneumoperitoneum. Probable phleboliths are present within th e pelvis. Bone mineralization is normal. IMPRESSION: No acute abnormalities evident.
== END | disposition home or self-care (01) ==
LOC: RADXRYALE 15:39
PROVIDERS: ATTEND Physician Assistant
DX: R10.30 Lower abdominal pain, unspecified (principal)
CPT/HCPCS: 72170; 74018

== ENCOUNTER → 2022-09-29 | Outpatient (CLI) | payer OTHER ==
--- NOTE | 2022-09-29 12:47 | XR ---
EXAMINATION TYPE: XR chest 2V DATE OF EXAM: 09/29/2022 COMPARISON: 03/24/2021 TECHNIQUE: PA and lateral views submitted. HISTORY: Shortness of breath FINDINGS: No pleural effusion or pneumothorax. Heart size normal. No failure. Patchy infiltrate left lower lobe . Hypertrophic and degenerative changes of the spine. Hyperinflation suggests COPD. IMPRESSION: 1. Patchy infiltrate left lower lobe correlate for early pneumonia.
== END | disposition home or self-care (01) ==
LOC: RADXRYALE 12:15
PROVIDERS: ATTEND Physician Assistant
DX: R91.8 Other nonspecific abnormal finding of lung field (principal); R06.02 Shortness of breath
CPT/HCPCS: 71046